=== PATIENT | male | born 1985 | race American Indian/Alaskan Native ===

== ENCOUNTER → 2017-12-23 14:13 | Outpatient (CLI) | payer OTHER, SELFPAY | PROVIDERS: Family Provider Family Medicine; PCP Family Medicine; Visit Provider Ophthalmology | DX: H16.102 Unspecified superficial keratitis, left eye (principal) | CPT/HCPCS: 87070; 87205 ==

== ENCOUNTER → 2018-10-13 10:59 | Outpatient (CLI) | payer OTHER, SELFPAY ==
--- NOTE | 2018-10-13 11:02 | DI.RAD.S_ITS ---
PROCEDURE: XR LUMBAR SPINE 2-3V INDICATIONS: worsening chronic back pain TECHNIQUE: 3 views of the lumbar spine were acquired. COMPARISON: [facility], , L-SPINE 2-3 VIEWS, 12/20/2014, 18:56. FINDINGS: Bones: 5 [id number] vertebrae are present. There is normal bony alignment, and there is only a minimal degree of degenerative disc disease is seen at L1-2 and L5-S1. Facet osteoarthritis is present mild in severity at L5 S1.. No vertebral body compression fractures. No suspicious bony lesions. Soft tissues: Overlying bowel gas pattern is normal. No suspicious soft tissue calcifications. IMPRESSION: Lumbosacral junction degenerative disc disease and facet osteoarthritis is mild to moderate in overall severity but without associated subluxation. No compression fracture found. Dictated by: Rigo Mauro M.D. on 10/13/2018 at 12:46 Approved by: Rigo Mauro M.D. on 10/13/2018 at 12:47
[2018-10-13 12:21] LABS: Add Manual Diff / Slide Review NO; Basophils Absolute Auto 0 /uL (0-100); Basophils Percent Auto 0.5 % (0-2); Eosinophils Absolute Auto 0 /uL (0-450); Eosinophils Percent Auto 0.5 % (2-4); Hematocrit 42.4 % (41-53); Hemoglobin 15.2 g/dL (13.5-17.5); Lymphocytes Absolute Auto 1300 /uL (1100-4500); Lymphocytes Percent Auto 23.5 % (25-40); Mean Corpuscular HGB Conc 35.8 % (30-36); Mean Corpuscular Volume 86.6 fL (80-100); Monocytes Absolute Auto 400 /uL (0-900); Neutrophils Absolute Auto 3700 /uL (1500-7000); Neutrophils Percent Auto 68.5 % (50-75); Platelet Count 229 X10^3/uL (150-400); Red Cell Distribution Width 12.7 % (11.6-14.8); White Blood Cell Count 5.4 X10^3/uL (4.5-11.0)
[2018-10-13 13:18] LABS: Alanine Aminotransferase 69 IU/L (21-72); Albumin 4.8 g/dL (3.5-5.0); Albumin Globulin Ratio 1.5 (1.0-2.8); Alkaline Phosphatase 66 U/L (38-126); Aspartate Aminotransferase 44 IU/L (17-59); Bilirubin Total 0.8 mg/dL (0.2-1.3); Blood Urea Nitrogen 16 mg/dL (9-20); Calcium 9.8 mg/dL (8.4-10.2); Carbon Dioxide 27 mmol/L (22-32); Chloride 105 mmol/L (98-107); Cholesterol 197 mg/dL (140-199); Estimated Glomerular Filt Rate > 60.0 mL/min (>60); Globulin 3.1 g/dL (1.7-4.1); Glucose 100 mg/dL (70-100); HDL Cholesterol 67 mg/dL (40-60); HEMOLYSIS < 15 (0-50); LDL Cholesterol Calculated 118 mg/dL (<100); Potassium 5.3 mmol/L (3.4-5.1); Sodium 142 mmol/L (137-145); Total Protein 7.9 g/dL (6.3-8.2); Triglycerides 62 mg/dL (35-150)
== END ==
PROVIDERS: PCP Family Medicine; Visit Provider Family Medicine
DX: M51.36 Other intervertebral disc degeneration, lumbar region (principal); M51.37 Other intervertebral disc degeneration, lumbosacral region; M47.816 Spondylosis without myelopathy or radiculopathy, lumbar region; M47.817 Spondylosis without myelopathy or radiculopathy, lumbosacral region; Z83.3 Family history of diabetes mellitus; M54.9 Dorsalgia, unspecified; G89.29 Other chronic pain
CPT/HCPCS: 36415; 72100; 80053; 80061; 85025

== ENCOUNTER 2018-11-16 13:08 | Inpatient (IN) | payer OTHER, SELFPAY ==
[2018-11-16] VITALS (12 sets, daily range): BP systolic 123–139; BP diastolic 64–83; PULSE 94–128; RESP 12–22; TEMP 36.8–37.4; O2SAT 98–100; BMI 28.1
[2018-11-16] MEDS: HYDROMORPHONE 1 MG INJ 0.5 MG IV ×2 (13:28→18:29)
[2018-11-16] MEDS: SODIUM CHLORIDE 0.9% 1,000 ML 1000 ML IV ×2 (13:28→14:17)
[2018-11-16] MEDS: ONDANSETRON 4 MG/2 ML INJ IV ×2 (13:28→17:02)
[2018-11-16] MEDS: PANTOPRAZOLE 40 MG VIAL IV (13:28)
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
[2018-11-16 13:51] LABS: Add Manual Diff / Slide Review NO; Basophils Absolute Auto 0 /uL (0-100); Basophils Percent Auto 0.2 % (0-2); Eosinophils Absolute Auto 0 /uL (0-450); Hematocrit 47.3 % (41-53); Hemoglobin 17.1 g/dL (13.5-17.5); INR 1.1 (0.9-1.3); Lymphocytes Absolute Auto 1800 /uL (1100-4500); Lymphocytes Percent Auto 18.5 % (25-40); Mean Corpuscular HGB Conc 36.1 % (30-36); Mean Corpuscular Hemoglobin 30.5 PG (26-34); Mean Corpuscular Volume 84.5 fL (80-100); Monocytes Absolute Auto 600 /uL (0-900); Monocytes Percent Auto 5.6 % (3-14); Neutrophils Absolute Auto 7500 /uL (1500-7000); Neutrophils Percent Auto 75.7 % (50-75); Platelet Count 306 X10^3/uL (150-400); Prothrombin Time 12.4 SECONDS (10.1-12.7); Red Blood Cell Count 5.59 X10^6/uL (4.5-5.9)
[2018-11-16 13:54] LABS: PTT Partial Thromboplastin Tim 29 SECONDS (26.4-36.2)
[2018-11-16 13:55] LABS: Creatine Kinase 1105 U/L (55-170); Lipase 94 U/L (23-300)
[2018-11-16 13:56] LABS: Alanine Aminotransferase 72 IU/L (21-72); Albumin Globulin Ratio 1.4 (1.0-2.8); Alkaline Phosphatase 115 U/L (38-126); Aspartate Aminotransferase 78 IU/L (17-59); BUN Creatinine Ratio 8.6 (6-22); Bilirubin Total 0.9 mg/dL (0.2-1.3); Blood Urea Nitrogen 6 mg/dL (9-20); Carbon Dioxide 25 mmol/L (22-32); Chloride 103 mmol/L (98-107); Estimated Glomerular Filt Rate > 60.0 mL/min (>60); Globulin 3.6 g/dL (1.7-4.1); Glucose 140 mg/dL (70-100); HEMOLYSIS < 15 (0-50); Potassium 3.7 mmol/L (3.4-5.1); Sodium 145 mmol/L (137-145); Total Protein 8.6 g/dL (6.3-8.2)
--- NOTE | 2018-11-16 14:05 | PC.NURSE ---
1316 on arrival pt awake, crying with tears, guarding abdomin, +pain, +heaving. skin pink,warm dry. refusing care, refusing cardiac specialist, refusing iv start.\ \with reassurance, pt agreed for care.
--- NOTE | 2018-11-16 14:07 | PC.NURSE ---
Family member of the pt called the ER requesting information about the pt. I asked the pt if it was ok that we give out any information and he said he didnt want us to. I informed the family member that I could not give out any information due to HIPAA and the pts rights.
[2018-11-16 14:08] LABS: Troponin I < 0.012 ng/mL (0.01-0.034)
[2018-11-16 14:10] LABS: CKMB % Relative Index 0.2 % (1.5-5.0); Creatine Kinase MB 2.14 ng/mL (<2.37)
[2018-11-16 14:11] LABS: Lactate (Lactic Acid) 4.9 mmol/L (0.7-2.1)
--- NOTE | 2018-11-16 14:13 | DI.CT.S_ITS ---
PROCEDURE: CT HEAD/BRAIN WO CON INDICATIONS: vomiting, hx of subdural TECHNIQUE: Noncontrast 4.5 mm thick angled axial sections acquired from the foramen magnum to the vertex, with coronal and sagittal reformats. For radiation dose reduction, the following was used: automated exposure control, adjustment of mA and/or kV according to patient size. COMPARISON: None. FINDINGS: Image quality: Excellent. CSF spaces: Basal cisterns are patent. No extra-axial fluid collections. Ventricles are normal in size and shape. Brain: No midline shift. No intracranial masses or hemorrhage. Hannah-white matter interface is normal. Skull and face: Calvarium and visualized facial bones are intact, without acute suspicious lesions. Prior left temporoparietal craniotomy reportedly for subdural hematoma evacuation. Sinuses: Visualized sinuses and mastoids are clear. Note is made that the nasal bones and the midline nasal septum have a curvature directed rightward, but no acute trauma in this area is found. IMPRESSION: No acute disease found, no sign of subdural hematoma or hydrocephalus. Right temporoparietal craniotomy without evidence of operative complication. Dictated by: Rigo Mauro M.D. on 11/16/2018 at 14:12 Approved by: Rigo Mauro M.D. on 11/16/2018 at 14:14
--- NOTE | 2018-11-16 14:13 | DI.CT.S_ITS ---
PROCEDURE: CT ABDOMEN PELVIS W CON INDICATIONS: pain vomiting blood TECHNIQUE: After the administration of oral and intravenous contrast, 5 mm thick sections acquired from the diaphragms to the symphysis. 5 mm thick coronal and sagittal reformats were performed. For radiation dose reduction, the following was used: automated exposure control, adjustment of mA and/or kV according to patient size. COMPARISON: None. FINDINGS: Image quality: Excellent. ABDOMEN: Lung bases: Lung bases are clear. Heart size is normal. Solid organs: Liver is normal in size and enhancement. Gallbladder appears normal. Biliary system is non-dilated. Pancreas enhances normally. Spleen is normal in size and enhancement. No adrenal nodules. Kidneys are normal in size and enhancement, without hydronephrosis. Peritoneum and bowel: Stomach, small bowel, and colon loops are normal in caliber and wall thickness. No free fluid or air. Nodes and vessels: No retroperitoneal or mesenteric adenopathy. Aorta and inferior vena cava are normal in caliber. Miscellaneous: No ventral hernias. PELVIS: Genitourinary: Bladder wall thickness is normal. Miscellaneous: No inguinal hernias or adenopathy. Normal appendix foun right lower quadrant Bones: No suspicious bony lesions. No vertebral body compression fractures. IMPRESSION: No underlying infection is suspected, no intestinal obstruction or perforation is seen. Normal appendix foun. Dictated by: Rigo Mauro M.D. on 11/16/2018 at 14:14 Approved by: Rigo Mauro M.D. on 11/16/2018 at 14:15
--- NOTE | 2018-11-16 14:52 | PC.NURSE ---
EMS reports known ETOH, TBI, vomiting blood.
[2018-11-16 14:59] LABS: Ethanol (ETOH) 336 mg/dL
[2018-11-16] MEDS: PANTOPRAZOLE 80 MG in SODIUM CHLORIDE 0.9% 100 ML 10 ML IV (15:12)
[2018-11-16 15:21] LABS: Urine Amphetamines Negative (Negative); Urine Barbiturates Negative (Negative); Urine Benzodiazepines Negative (Negative); Urine Cocaine Negative (Negative); Urine MDMA Negative (Negative); Urine Methadone Negative (Negative); Urine Methamphetamines Negative (Negative); Urine Morphine/Opi cutoff 2000 Negative (Negative); Urine Oxycodone Negative (Negative); Urine Phencyclidine Negative (Negative); Urine Tetrahydrocannabinol Negative (Negative); Urine Tricyclic Antidepressant Negative (Negative)
[2018-11-16 15:38] LABS: Reflexed Lactate in 2 Hours Y
--- NOTE | 2018-11-16 15:41 | PC.NURSE ---
1500 pt stating that he had to urinate. When told that he needed to use a urinal instead of walking to the bathroom he stated that he was just trying to go home. I said that I understood but that he should go ahead and use the restroom. Pt seemed uncomfortable with me staying in the room while he voided. I told him that I would have a male nurse (Ricki) come assist him. Pt was agreeable to this.
[2018-11-16] MEDS: HYDROMORPHONE 1 MG INJ IV (15:57)
[2018-11-16] MEDS: SODIUM CHLORIDE 0.9% 1,000 ML 250 ML IV (16:39)
[2018-11-16] MEDS: LORazepam 2 MG/ML INJ 1 MG IV (17:02)
--- NOTE | 2018-11-16 17:08 | RT ---
EKG done at 1334. Documentation on worklist would not let me enter a time. EKG was givwn to MD Gongora.
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
[2018-11-16 17:39] LABS: Lactate 2HR (Lactic Acid Rflx) 3.7 mmol/L (0.7-2.1)
[2018-11-16] MEDS: HYDROMORPHONE 1 MG INJ 2 MG IV ×2 (19:04→22:33)
[2018-11-16] MEDS: KCL 20 MEQ IN NS 1,000 ML 200 MEQ IV (19:17)
--- NOTE | 2018-11-16 20:26 | PC.NURSE ---
Patient arrived to floor via stretcher from ED. Patient is A&O x4, does have some difficulty finding words and is slightly mumbled. Patient has a strong odor of alcohol present while standing at bedside. Patient reports to this nurse he has not had any alcohol since june of 2011 but due to some home issues with his current partner he started drinking Henessy yesterday and is unclear on the actual amount consumed. Patient has sever viable tremors upon arrival, proximal sweating, reports feeling very anxious but believes it to be due to the Dilaudid medication given from his abd. Pain. Patient states he is feel nauseated and wishes to have some water so he can throw up. Offered treatment for nausea but patient declined. Pain in abd. is rated a 8/10. Patient also states the he is feeling emotional pain due to his current relationship issues. Patient was asked upon arrival to the floor how he wishes to remain while at . Explained to patient that his current admission status is confidential and asked if he wishes to remain. Patient reports he does not want ANYONE to know he is in the hospital. I explained to patient that if anyone calls this means we will state we do not have anyone under said/asked name, Patient is agreeable to plan to remain confidential. Patient wishes to have curtains drawn at all times as well. CIWA screen was done on patient given his presenting sxs and scored an 8. Patient is resting peacefully in bed at this time, call light w/in reach, bed in low pos.
[2018-11-16] MEDS: LORazepam 1 MG TABLET PO (22:47)
[2018-11-17] VITALS (9 sets, daily range): BP systolic 128–144; BP diastolic 68–92; PULSE 75–110; RESP 15–21; TEMP 36.8–37.5; O2SAT 95–100
[2018-11-17] MEDS: KCL 20 MEQ IN NS 1,000 ML 200 MEQ IV ×5 (01:07→21:20)
[2018-11-17] MEDS: LORazepam 2 MG/ML INJ IV ×6 (01:11→21:21)
[2018-11-17] MEDS: ONDANSETRON 4 MG/2 ML INJ IV ×2 (01:12→17:53)
[2018-11-17] MEDS: PANTOPRAZOLE 80 MG in SODIUM CHLORIDE 0.9% 100 ML 10 ML IV ×2 (01:40→12:46)
[2018-11-17] MEDS: HYDROMORPHONE 1 MG INJ IV ×2 (03:54→06:28)
[2018-11-17 05:16] LABS: Add Manual Diff / Slide Review NO; Basophils Absolute Auto 0 /uL (0-100); Basophils Percent Auto 0.2 % (0-2); Eosinophils Absolute Auto 0 /uL (0-450); Hematocrit 40.4 % (41-53); Hemoglobin 13.9 g/dL (13.5-17.5); Lymphocytes Absolute Auto 1400 /uL (1100-4500); Lymphocytes Percent Auto 11.6 % (25-40); Mean Corpuscular HGB Conc 34.5 % (30-36); Mean Corpuscular Hemoglobin 30.1 PG (26-34); Mean Corpuscular Volume 87.4 fL (80-100); Monocytes Absolute Auto 700 /uL (0-900); Monocytes Percent Auto 6.4 % (3-14); Neutrophils Absolute Auto 9600 /uL (1500-7000); Neutrophils Percent Auto 81.8 % (50-75); Platelet Count 214 X10^3/uL (150-400); Red Blood Cell Count 4.63 X10^6/uL (4.5-5.9); Red Cell Distribution Width 12.7 % (11.6-14.8); White Blood Cell Count 11.7 X10^3/uL (4.5-11.0)
[2018-11-17 05:26] LABS: BUN Creatinine Ratio 16.7 (6-22); Blood Urea Nitrogen 10 mg/dL (9-20); Calcium 7.9 mg/dL (8.4-10.2); Carbon Dioxide 27 mmol/L (22-32); Chloride 106 mmol/L (98-107); Creatine Kinase 826 U/L (55-170); Estimated Glomerular Filt Rate > 60.0 mL/min (>60); Glucose 118 mg/dL (70-100); HEMOLYSIS < 15 (0-50); Lactate (Lactic Acid) 1.3 mmol/L (0.7-2.1); Sodium 139 mmol/L (137-145)
[2018-11-17] MEDS: LORazepam 2 MG/ML INJ 1 MG IV (06:27)
[2018-11-17] MEDS: SODIUM CHLORIDE 0.9% FLUSH 10 ML IV ×4 (06:29→21:33)
--- NOTE | 2018-11-17 06:34 | PC.NURSE ---
Pt c/o break through pain. Provider notified of cont pain level, cont n/v, increased ciwa, elevated temp of 99.1. MD would like pt to have 1 mg ativan now and 1 mg Dilaudid once for break-through pain. Medicated per jun. CPOX placed on to monitor sats. Pt now resting in bed. Bed alarm on. Call light within reach.
--- NOTE | 2018-11-17 07:44 | P.PN_ITS ---
Subjective Date Patient Seen: 11/17/18 Time Patient Seen: 07:22 Interval history: Patient had a difficult night with back pain, anxiety and nausea. Received lorazepam and hydromorphone multiple times. He had clear emesis. No reports of blood in emesis. No bowel movements. He states he is very anxious. This morning he complains of low back pain that feels different than his chronic back pain and pain with urination. He states that he actually drank for 3-4 days prior to being found down by housekeeping in his hotel. He is adamant that he had not been drinking prior to that since 2011. Exam Vital Signs (past 8 hours): - 11/17/18 01:00 11/17/18 01:23 11/17/18 06:10 Temperature 98.7 F 99.1 F Pulse Rate 76 75 Respiratory Rate 21 16 Blood Pressure 133/68 134/73 Pulse Oximetry 99 99 95 Oxygen Delivery Method Room Air Oxygen Flow Rate 0 Narrative Exam Narrative: General: Resting in bed with eyes closed. Wakes briefly to some questions but is slow to answer and does not answer all questions. Appears to go in and out of sleep. HEENT: NCAT, moist oral mucosa CV: Regular rate and rhythm, no murmurs, rubs or gallops Lungs: CTAB, no wheezes, rales, or rhonchi Abdomen: Soft, nontender; bowel tones active; no hepatosplenomegaly Extremities: Warm, no edema, 2+ pedal pulses bilaterally Objective Labs Result Diagrams: 11/17/18 05:01 11/17/18 05:01 Labs: Laboratory Results - last 24 hr 11/16/18 11/16/18 11/16/18 13:20 13:20 13:20 WBC 10.0 RBC 5.59 Hgb 17.1 Hct 47.3 MCV 84.5 MCH 30.5 MCHC 36.1 H RDW 13.0 Plt Count 306 Neut % (Auto) 75.7 H Lymph % (Auto) 18.5 L [place] % (Auto) 5.6 Eos % (Auto) 0.0 L Baso % (Auto) 0.2 Neut # (Auto) 7500 H Lymph # (Auto) 1800 [place] # (Auto) 600 Eos # (Auto) 0 Baso # (Auto) 0 PT INR APTT Sodium Potassium Chloride Carbon Dioxide BUN Creatinine Estimated GFR BUN/Creatinine Ratio Glucose Lactate 4.9 H* Calcium Total Bilirubin AST ALT Alkaline Phosphatase Total Creatine Kinase 1105 H CK-MB (CK-2) 2.14 CK-MB (CK-2) Rel Index 0.2 L Troponin I < 0.012 Total Protein Albumin Globulin Albumin/Globulin Ratio Lipase 94 Urine Opiates Screen Ur Oxycodone Screen Urine Methadone Screen Ur Barbiturates Screen U Tricyclic Antidepress Ur Phencyclidine Scrn Ur Amphetamines Screen U Methamphetamines Scrn Ur MDMA Scrn (Ecstasy) U Benzodiazepines Scrn Urine Cocaine Screen U Marijuana (THC) Screen Ethyl Alcohol Blood Type Antibody Screen 11/16/18 11/16/18 11/16/18 13:20 13:20 13:20 WBC RBC Hgb Hct MCV MCH MCHC RDW Plt Count Neut % (Auto) Lymph % (Auto) [place] % (Auto) Eos % (Auto) Baso % (Auto) Neut # (Auto) Lymph # (Auto) [place] # (Auto) Eos # (Auto) Baso # (Auto) PT 12.4 INR 1.1 APTT 29 Sodium 145 Potassium 3.7 Chloride 103 Carbon Dioxide 25 BUN 6 L Creatinine 0.70 Estimated GFR > 60.0 BUN/Creatinine Ratio 8.6 Glucose 140 H Lactate Calcium 9.0 Total Bilirubin 0.9 AST 78 H ALT 72 Alkaline Phosphatase 115 Total Creatine Kinase CK-MB (CK-2) CK-MB (CK-2) Rel Index Troponin I Total Protein 8.6 H Albumin 5.0 Globulin 3.6 Albumin/Globulin Ratio 1.4 Lipase Urine Opiates Screen Ur Oxycodone Screen Urine Methadone Screen Ur Barbiturates Screen U Tricyclic Antidepress Ur Phencyclidine Scrn Ur Amphetamines Screen U Methamphetamines Scrn Ur MDMA Scrn (Ecstasy) U Benzodiazepines Scrn Urine Cocaine Screen U Marijuana (THC) Screen Ethyl Alcohol Blood Type O Positive Antibody Screen Negative 11/16/18 11/16/18 11/16/18 13:38 15:11 17:17 WBC RBC Hgb Hct MCV MCH MCHC RDW Plt Count Neut % (Auto) Lymph % (Auto) [place] % (Auto) Eos % (Auto) Baso % (Auto) Neut # (Auto) Lymph # (Auto) [place] # (Auto) Eos # (Auto) Baso # (Auto) PT INR APTT Sodium Potassium Chloride Carbon Dioxide BUN Creatinine Estimated GFR BUN/Creatinine Ratio Glucose Lactate 3.7 H Calcium Total Bilirubin AST ALT Alkaline Phosphatase Total Creatine Kinase CK-MB (CK-2) CK-MB (CK-2) Rel Index Troponin I Total Protein Albumin Globulin Albumin/Globulin Ratio Lipase Urine Opiates Screen Negative Ur Oxycodone Screen Negative Urine Methadone Screen Negative Ur Barbiturates Screen Negative U Tricyclic Antidepress Negative Ur Phencyclidine Scrn Negative Ur Amphetamines Screen Negative U Methamphetamines Scrn Negative Ur MDMA Scrn (Ecstasy) Negative U Benzodiazepines Scrn Negative Urine Cocaine Screen Negative U Marijuana (THC) Screen Negative Ethyl Alcohol 336 Blood Type Antibody Screen 11/17/18 11/17/18 11/17/18 05:01 05:01 05:01 WBC 11.7 H RBC 4.63 Hgb 13.9 Hct 40.4 L MCV 87.4 MCH 30.1 MCHC 34.5 RDW 12.7 Plt Count 214 Neut % (Auto) 81.8 H Lymph % (Auto) 11.6 L [place] % (Auto) 6.4 Eos % (Auto) 0.0 L Baso % (Auto) 0.2 Neut # (Auto) 9600 H Lymph # (Auto) 1400 [place] # (Auto) 700 Eos # (Auto) 0 Baso # (Auto) 0 PT INR APTT Sodium 139 Potassium 4.0 Chloride 106 Carbon Dioxide 27 BUN 10 Creatinine 0.60 L Estimated GFR > 60.0 BUN/Creatinine Ratio 16.7 Glucose 118 H Lactate 1.3 Calcium 7.9 L Total Bilirubin AST ALT Alkaline Phosphatase Total Creatine Kinase 826 H CK-MB (CK-2) CK-MB (CK-2) Rel Index Troponin I Total Protein Albumin Globulin Albumin/Globulin Ratio Lipase Urine Opiates Screen Ur Oxycodone Screen Urine Methadone Screen Ur Barbiturates Screen U Tricyclic Antidepress Ur Phencyclidine Scrn Ur Amphetamines Screen U Methamphetamines Scrn Ur MDMA Scrn (Ecstasy) U Benzodiazepines Scrn Urine Cocaine Screen U Marijuana (THC) Screen Ethyl Alcohol Blood Type Antibody Screen Assessment & Plan (1) Acute alcohol intoxication: Current visit: Yes Status: Acute (2) Acute GI bleeding: Current visit: Yes Status: Acute (3) Chronic back pain: Current visit: No Status: Chronic (4) Anxiety: Current visit: Yes Status: Acute Assessment & Plan narrative: Patient was admitted overnight for acute alcohol intoxication, acute dehydration and concern for upper GI bleed. He has not had any witnessed hematemesis since arrival to the hospital. Emesis reportedly clear overnight. Dehydration significantly improved with normalization of tachycardia and improved urine output. He was placed on the CIWA protocol last night however he was still intoxicated at the time so too soon to experience alcohol withdrawal. I believe the symptoms overnight are most consistent with alcohol intoxication and dehydration rather than withdrawal. He was quite sleepy this morning after lorazepam and hydrocodone so difficult to assess. He does complain of low back pain which is not a new issue though he does complain of some pain with urination. Plan for this morning is to recheck labs, continue IV fluid support, check UA due to dysuria, limit hydromorphone and lorazepam and reassess midday once he is hopefully more awake. Will need mental health support upon discharge, likely will set him up with the [facility]. He already as a referral for his chronic low back pain. Quality VTE Deep Vein Thrombosis/Pulmonary Embolism Present on Admission: No
[2018-11-17 09:26] LABS: Hematocrit 41.5 % (41-53); Hemoglobin 14.7 g/dL (13.5-17.5); Mean Corpuscular HGB Conc 35.3 % (30-36); Mean Corpuscular Hemoglobin 30.7 PG (26-34); Mean Corpuscular Volume 86.9 fL (80-100); Platelet Count 205 X10^3/uL (150-400); Red Blood Cell Count 4.78 X10^6/uL (4.5-5.9); Red Cell Distribution Width 12.6 % (11.6-14.8)
[2018-11-17 09:43] LABS: Magnesium 1.8 mg/dL (1.6-2.3)
[2018-11-17 09:45] LABS: Creatine Kinase 764 U/L (55-170); Ethanol (ETOH) < 10 mg/dL
[2018-11-17 10:10] LABS: Appearance Urine UA CLEAR; Bilirubin Urine UA NEGATIVE (NEGATIVE); Color Urine UA YELLOW; Glucose Urine UA NEGATIVE (Negative); Ketones Urine UA TRACE (NEGATIVE); Leukocyte Esterase Urine UA NEGATIVE (NEGATIVE); Nitrite Urine UA NEGATIVE (Negative); Occult Blood Urine UA NEGATIVE (Negative); Protein Urine UA NEGATIVE (Negative); Urobilinogen Urine UA 0.2 E.U./dL (0.2)
[2018-11-17 10:28] LABS: RBC Urine 0-1/HPF (0-5/HPF); WBC Urine 0-1/HPF (0-5/HPF)
[2018-11-17 10:29] LABS: Bacteria Urine Few (2-10); Culture Indicated Urine Cult Not Indicated; Squamous Epithelial Cell Urine 0-1 /HPF (0-5/HPF)
--- NOTE | 2018-11-17 11:47 | PC.NURSE ---
CIWA score of 13. Pt has headache, states he is anxious, seeing hallucinations of additional people in the room when it is only one nurse present. Pt states he hears some odd noises- unable to give details. Will continue to treat per CIWA protocol
[2018-11-17] MEDS: FOLIC ACID 1 MG TABLET PO (14:33)
[2018-11-17] MEDS: MULTIVITAMIN 1 TABLET 1 TAB PO (14:33)
[2018-11-17] MEDS: THIAMINE 100 MG TABLET PO (14:34)
--- NOTE | 2018-11-17 17:07 | PM.PN.1 ---
Exam Vital Signs (past 8 hours): - 11/17/18 09:30 11/17/18 11:15 11/17/18 12:00 Temperature 99.5 F 99.4 F 99.4 F Pulse Rate 110 H 102 H 102 H Respiratory Rate 20 15 15 Blood Pressure 128/79 130/92 H 130/92 H Pulse Oximetry 100 98 98 11/17/18 16:32 Temperature 98.3 F Pulse Rate 86 Respiratory Rate 18 Blood Pressure 144/71 H Pulse Oximetry 97 Oxygen Delivery Method Room Air Oxygen Flow Rate 0 Objective Labs Result Diagrams: 11/17/18 09:10 11/17/18 05:01 Labs: Laboratory Results - last 24 hr 11/16/18 11/17/18 11/17/18 17:17 05:01 05:01 WBC 11.7 H RBC 4.63 Hgb 13.9 Hct 40.4 L MCV 87.4 MCH 30.1 MCHC 34.5 RDW 12.7 Plt Count 214 Neut % (Auto) 81.8 H Lymph % (Auto) 11.6 L [place] % (Auto) 6.4 Eos % (Auto) 0.0 L Baso % (Auto) 0.2 Neut # (Auto) 9600 H Lymph # (Auto) 1400 [place] # (Auto) 700 Eos # (Auto) 0 Baso # (Auto) 0 Sodium 139 Potassium 4.0 Chloride 106 Carbon Dioxide 27 BUN 10 Creatinine 0.60 L Estimated GFR > 60.0 BUN/Creatinine Ratio 16.7 Glucose 118 H Lactate 3.7 H Calcium 7.9 L Magnesium Total Creatine Kinase 826 H Urine Color Urine Appearance Urine pH Ur Specific [place] Urine Protein Urine Glucose (UA) Urine Ketones Urine Occult Blood Urine Nitrate Urine Bilirubin Urine Urobilinogen Ur Leukocyte Esterase Urine RBC Urine WBC Ur Squamous Epith Cells Urine Bacteria Ur Culture Indicated? Ethyl Alcohol 11/17/18 11/17/18 11/17/18 05:01 09:10 09:10 WBC 10.0 RBC 4.78 Hgb 14.7 Hct 41.5 MCV 86.9 MCH 30.7 MCHC 35.3 RDW 12.6 Plt Count 205 Neut % (Auto) Lymph % (Auto) [place] % (Auto) Eos % (Auto) Baso % (Auto) Neut # (Auto) Lymph # (Auto) [place] # (Auto) Eos # (Auto) Baso # (Auto) Sodium Potassium Chloride Carbon Dioxide BUN Creatinine Estimated GFR BUN/Creatinine Ratio Glucose Lactate 1.3 Calcium Magnesium Total Creatine Kinase 764 H Urine Color Urine Appearance Urine pH Ur Specific [place] Urine Protein Urine Glucose (UA) Urine Ketones Urine Occult Blood Urine Nitrate Urine Bilirubin Urine Urobilinogen Ur Leukocyte Esterase Urine RBC Urine WBC Ur Squamous Epith Cells Urine Bacteria Ur Culture Indicated? Ethyl Alcohol 11/17/18 11/17/18 11/17/18 09:10 09:10 09:57 WBC RBC Hgb Hct MCV MCH MCHC RDW Plt Count Neut % (Auto) Lymph % (Auto) [place] % (Auto) Eos % (Auto) Baso % (Auto) Neut # (Auto) Lymph # (Auto) [place] # (Auto) Eos # (Auto) Baso # (Auto) Sodium Potassium Chloride Carbon Dioxide BUN Creatinine Estimated GFR BUN/Creatinine Ratio Glucose Lactate Calcium Magnesium 1.8 Total Creatine Kinase Urine Color Yellow Urine Appearance Clear Urine pH 7.0 Ur Specific [place] 1.020 Urine Protein Negative Urine Glucose (UA) Negative Urine Ketones Trace H Urine Occult Blood Negative Urine Nitrate Negative Urine Bilirubin Negative Urine Urobilinogen 0.2 Ur Leukocyte Esterase Negative Urine RBC 0-1/hpf Urine WBC 0-1/hpf Ur Squamous Epith Cells 0-1 /hpf Urine Bacteria Few (2-10) H Ur Culture Indicated? Cult not indicated Ethyl Alcohol < 10 Assessment & Plan Assessment & Plan narrative: Patient still with nausea, dry heaves and elevated CIWA scores. Alcohol seems unlikely since he supposedly has not been drinking until this week but clinical picture is most consistent with withdrawal. Will continue CIWA monitoring and lorazepam. Stop Protonix drip and start oral Protonix. No evidence of GI bleed. Stop hydromorphone, ok to have oxycodone for pain, no NSAIDs due to concern of GI bleed on admission. I suspect he needs more time to recover from alcohol intoxication/poisoning. Anticipate at least another night in the hospital. Quality VTE Deep Vein Thrombosis/Pulmonary Embolism Present on Admission: No
[2018-11-17] MEDS: OXYCODONE IR 5 MG TABLET PO (17:52)
--- NOTE | 2018-11-17 23:26 | PC.NURSE ---
pt c/o of back pain and abdominal pain, gave zofran for dry heaves and oxycodone 5mg. pt fell asleep and woke up around 2119, pt reports his hallucinations increased. pt seeing people in the room and hearing voices. pt states the voices are telling him bad things. pt also saw spiders. pt's head ache improved. CIWA 17, gave 2mg ativan.
[2018-11-18] VITALS (7 sets, daily range): BP systolic 117–142; BP diastolic 70–85; PULSE 69–98; RESP 16–18; TEMP 36.4–37.6; O2SAT 97–99
[2018-11-18] MEDS: ONDANSETRON 4 MG/2 ML INJ IV ×3 (00:45→14:22)
[2018-11-18] MEDS: OXYCODONE IR 5 MG TABLET PO ×5 (00:45→23:00)
[2018-11-18] MEDS: LORazepam 1 MG TABLET PO (00:45)
[2018-11-18] MEDS: KCL 20 MEQ IN NS 1,000 ML 200 MEQ IV ×3 (02:26→14:23)
[2018-11-18 05:22] LABS: Hematocrit 38.5 % (41-53); Hemoglobin 13.5 g/dL (13.5-17.5); Mean Corpuscular HGB Conc 35.1 % (30-36); Mean Corpuscular Hemoglobin 30.4 PG (26-34); Mean Corpuscular Volume 86.6 fL (80-100); Platelet Count 182 X10^3/uL (150-400); Red Blood Cell Count 4.44 X10^6/uL (4.5-5.9); Red Cell Distribution Width 12.5 % (11.6-14.8); White Blood Cell Count 5.9 X10^3/uL (4.5-11.0)
[2018-11-18 05:40] LABS: Alanine Aminotransferase 46 IU/L (21-72); Albumin 3.5 g/dL (3.5-5.0); Albumin Globulin Ratio 1.3 (1.0-2.8); Alkaline Phosphatase 75 U/L (38-126); Aspartate Aminotransferase 49 IU/L (17-59); Bilirubin Total 1.1 mg/dL (0.2-1.3); Blood Urea Nitrogen 6 mg/dL (9-20); Calcium 8.3 mg/dL (8.4-10.2); Carbon Dioxide 26 mmol/L (22-32); Chloride 107 mmol/L (98-107); Estimated Glomerular Filt Rate > 60.0 mL/min (>60); Globulin 2.7 g/dL (1.7-4.1); Glucose 97 mg/dL (70-100); HEMOLYSIS < 15 (0-50); Potassium 4.1 mmol/L (3.4-5.1); Sodium 139 mmol/L (137-145); Total Protein 6.2 g/dL (6.3-8.2)
[2018-11-18 06:05] LABS: Creatine Kinase 457 U/L (55-170)
[2018-11-18] MEDS: PANTOPRAZOLE 40 MG TABLET PO (06:52)
[2018-11-18] MEDS: LORazepam 2 MG/ML INJ IV ×3 (10:25→18:59)
[2018-11-18] MEDS: SODIUM CHLORIDE 0.9% FLUSH 10 ML IV ×4 (10:26→21:38)
--- NOTE | 2018-11-18 10:53 | DI.MRI.S_ITS ---
PROCEDURE: MR HEAD/BRAIN WO CON INDICATIONS: mental status change TECHNIQUE: Noncontrast axial T1 spin echo, axial T2 fast spin echo, sagittal and axial FLAIR, coronal T2 fast spin echo, axial gradient echo, axial diffusion and ADC through the brain. COMPARISON: [facility], CT, CT HEAD/BRAIN WO CON, 11/16/2018, 13:44. FINDINGS: Image quality: The standard head coil could not be used the, secondary to patient vomiting. CSF Spaces: Basal cisterns are patent. No extra-axial fluid collections. Ventricles are normal in size and shape. Brain: No intracranial masses or hemorrhage. [place]/white matter interface is normal. Brainstem appears normal. Diffusion-weighted images demonstrate no acute ischemic insult. No chronic ischemic insults. Normal intravascular flow voids are present. Skull and face: Right sided craniotomy changes are seen. Calvarium has normal marrow signal. Orbits appear normal. Sinuses: Sinuses and mastoids are clear. IMPRESSION: Limited study demonstrating no acute intracranial abnormality. Right-sided craniotomy changes. Dictated by: Louis Blackmon M.D. on 11/18/2018 at 10:57 Approved by: Louis Blackmon M.D. on 11/18/2018 at 10:58
--- NOTE | 2018-11-18 11:00 | P.PN_ITS ---
Subjective Date Patient Seen: 11/18/18 Time Patient Seen: 10:56 Interval history: Alcohol intoxication. This morning patient really does not feel any better. He has several complaints. Continues to feel nauseated and retch. He is not vomiting anything because not taking anything orally. He has a significant amount of nausea persisted. Additionally he is having some reflux type of symptoms that has persisted. His abdominal pain is midepigastric and seemed to be unchanged from yesterday not getting better not getting worse. He also has mid thoracic back pain that is not atypical for him. Reportedly he was having hallucinations at a CIWA score still 17 so he is getting fair amount medication for this. Exam Vital Signs (past 8 hours): - 11/18/18 04:00 11/18/18 04:40 Temperature 98.3 F Pulse Rate 98 H Respiratory Rate 18 Blood Pressure 131/77 Pulse Oximetry 98 99 Oxygen Delivery Method Room Air Oxygen Flow Rate 0 Narrative Exam Narrative: Patient is examined in his hospital bed he looks uncomfortable and rashes while I am examining him. Complaining of generalized pain. His neuro exam seems to be a normal. Lungs are clear. Heart regular rhythm no murmur gallop. He does have from abdominal tenderness and some guarding there is no masses no rebound. Back exam just generalized discomfort in the lower thoracic area upper lumbar Objective Labs Result Diagrams: 11/18/18 04:52 11/18/18 04:52 Labs: Laboratory Results - last 24 hr 11/18/18 11/18/18 11/18/18 04:52 04:52 04:52 WBC 5.9 RBC 4.44 L Hgb 13.5 Hct 38.5 L MCV 86.6 MCH 30.4 MCHC 35.1 RDW 12.5 Plt Count 182 Sodium 139 Potassium 4.1 Chloride 107 Carbon Dioxide 26 BUN 6 L Creatinine 0.60 L Estimated GFR > 60.0 BUN/Creatinine Ratio 10.0 Glucose 97 Calcium 8.3 L Total Bilirubin 1.1 AST 49 ALT 46 Alkaline Phosphatase 75 Total Creatine Kinase 457 H D Total Protein 6.2 L Albumin 3.5 Globulin 2.7 Albumin/Globulin Ratio 1.3 Labs from today is reviewed his total is CK has decreased but still elevated. Renal functions normal however. Hemoglobin stable drop somewhat with hydration Assessment & Plan Assessment & Plan narrative: 1. Alcohol intoxication presumably the acute intoxication has resolved his alcohol level was back down to normal. Unclear to me how much of this is related to his alcohol or to his alcohol withdrawal. This seems to be fairly prolonged course. Perhaps other things involved. 2. Persistent nausea and vomiting and retching. Persistent abdominal pain. Rediscussed with Dr. Magana the surgeon public relations account supervisor who will see patient in consultation. May need endoscopy. 3. His mental status today seems appropriate but a report he has been having hallucinations. This is been treated accordingly to the [facility] protocol. This seems to be unusual and will get MRI of the head he did denies having any metal clips from his brain injury I suspect not however yet to be determined. 4. Chronic back pain seems to be ongoing problem. Will switch over 2 hydromorphone because patient does vomiting cannot tolerate the pills. Quality VTE Deep Vein Thrombosis/Pulmonary Embolism Present on Admission: No
[2018-11-18 12:45] LABS: Amylase 63 U/L (30-110); Lipase 208 U/L (23-300)
[2018-11-18] MEDS: HYDROMORPHONE 0.5 MG INJ 1 MG IV ×3 (12:51→21:33)
[2018-11-18] MEDS: PANTOPRAZOLE 40 MG VIAL IV (12:52)
--- NOTE | 2018-11-18 12:59 | PM.CN ---
History of Present Illness Date Patient Seen: 11/18/18 Time Patient Seen: 13:44 Chief complaint: Vomiting blood Narrative: The patient is a 33-year-old male who is admitted to the hospital for 3 days with abdominal pain. He was initially found down and there was some question of GI bleed but he has had no hematemesis and no hematochezia since his admission and his hematocrit is 39 today and 47 on admission. His complaint is of some sharp mid epigastrium abdominal pain that goes to the back and is worsened by eating. He is in active alcohol withdrawl currently and recieving treatment. He has a history of chronic back pain and endorses heavy usage of NSAIDs. He has been receiving Protonix during his hospital stay. He denies history of ulcer disease. On admission he underwent a CT of his abdomen pelvis that was unremarkable including pancreas which I reviewed personally. There is no free air or fluid around stomach or the duodenum to suggest perforation. His laboratory studies on admission were remarkable for dehydration and have subsequently normalized with fluid resuscitation. 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) Anxiety (Resolved) Sternum fx (Resolved) Surgical History Anesthesia (Resolved) History of brain surgery (Resolved) Family History Father Cancer Diabetes mellitus History of heart disease Hypertension Hyperlipidemia Stroke Grandfather Cancer Diabetes mellitus History of heart disease Hypertension Stroke Grandmother Diabetes mellitus History of heart disease Hypertension Social History marital status: unmarried,single number of children: 2 household members: family lives independently: Yes occupational status: employed Smoking Status: Never smoker alcohol intake: former substance use type: does not use Family History Father Cancer Diabetes mellitus History of heart disease Hypertension Hyperlipidemia Stroke Grandfather Cancer Diabetes mellitus History of heart disease Hypertension Stroke Grandmother Diabetes mellitus History of heart disease Hypertension Social History marital status: unmarried,single number of children: 2 household members: family lives independently: Yes occupational status: employed Smoking Status: Never smoker alcohol intake: former substance use type: does not use Meds Home Medications Medication Instructions Recorded Confirmed Type buspirone 7.5 mg tablet 7.5 mg PO DAILY PRN tab 10/09/18 11/16/18 History meloxicam 15 mg tablet 15 mg PO DAILY #30 tab 10/24/18 11/16/18 Rx hydrocodone-acetaminophen 1 tab PO Q6-8H PRN 11/16/18 11/17/18 History Allergies Allergy/AdvReac Type Severity Reaction Status Date / Time No Known Drug Allergies Allergy Verified 11/16/18 13:16 Review of Systems Review of Systems General-no weight loss, fever or chills Head and Neck-no change in voice, no neck swelling Pulmonary-No cough, no shortness of breath at rest, no wheezing Cardiac-No syncope, caludiacation, palpitations or lower extremity edema Gastrointestinal- +nausea and vomiting, no abdominal distention, change in bowel habits,or jaundice Genitourinary-No hematuria or dysuria Hematology-No hypercoagulability, no abnormal bleeding or bruising Neurological-No seizures, new weakness or dizziness Endocrine-No diabetes, no thyroid or adrenal disorders Psychiatric-+substance abuse disorder Exam Vital Signs (past 8 hours): Oxygen Delivery Method Room Air Oxygen Flow Rate 0 Narrative Exam Narrative: General-Adult male in pain and restless. HEENT-Moist mucous membranes, no scleral icteris Neck-Supple with full range of motion, no lymphadenopathy Chest- No labored respirations, clear to auscultation bilaterally Cardiac-Regular rate and rhythm Abdomen-Tender midepigastrum, non distended, no peritonitis Extremities-No edema, warm well perfused Neurological-Alert No focal deficits Skin-Normal temperature and turgor, no rashes or ulcers Objective Labs Result Diagrams: 11/18/18 04:52 11/18/18 04:52 Labs: Laboratory Results - last 24 hr 11/18/18 11/18/18 11/18/18 04:52 04:52 04:52 WBC 5.9 RBC 4.44 L Hgb 13.5 Hct 38.5 L MCV 86.6 MCH 30.4 MCHC 35.1 RDW 12.5 Plt Count 182 Sodium 139 Potassium 4.1 Chloride 107 Carbon Dioxide 26 BUN 6 L Creatinine 0.60 L Estimated GFR > 60.0 BUN/Creatinine Ratio 10.0 Glucose 97 Calcium 8.3 L Total Bilirubin 1.1 AST 49 ALT 46 Alkaline Phosphatase 75 Total Creatine Kinase 457 H D Total Protein 6.2 L Albumin 3.5 Globulin 2.7 Albumin/Globulin Ratio 1.3 Amylase Lipase 11/18/18 11/18/18 04:52 04:52 WBC RBC Hgb Hct MCV MCH MCHC RDW Plt Count Sodium Potassium Chloride Carbon Dioxide BUN Creatinine Estimated GFR BUN/Creatinine Ratio Glucose Calcium Total Bilirubin AST ALT Alkaline Phosphatase Total Creatine Kinase Total Protein Albumin Globulin Albumin/Globulin Ratio Amylase 63 Lipase 208 D Assessment & Plan (1) Abdominal pain: Current visit: Yes Status: Acute Assessment & Plan narrative: Patient is a 33-year-old male who was initially found down admitted to the hospital with dehydration some mild rhabdo that is subsequently resolved. He is being actively treated for alcohol withdrawal. He continues to have abdominal pain of unclear etiology. His abdomen is tender and he has been nauseous with emesis. He is hemodynamically stable and has no peritonitis. I reviewed his CT abdomen pelvis which has no evidence of hollow viscus perforation and the pancreas is normal. His laboratory studies suggest that he has some mild elevation in his amylase to 200 but not necessarily enough to explain his picture entirely. He does not have a history of heavy NSAID use due to chronic lower back pain and peptic ulcer disease is a possibility. -Continue Protonix -Scheduled for upper endoscopy 11/20/18 -NPO @ midnight 11/20 -Continue IV fluids
--- NOTE | 2018-11-18 15:59 | CM.IDA ---
Initial DCP Assessment Note: Pt is a 33 yo male, resident of [facility]. Pt was found by hotel staff in a pool of blood, pt presents complaining of days of abd pain. Pt has h/o heavy alcohol use but had been sober since 2011, states he has been binge drinking since finding his in bed w/another man two days ago. PCP: Dr Wilcox Payer: Healthcare Management/[facility] Reviwed chart yesterday and today. Neither Dr Wilcox or Dr Song have requested EMERGENCY ROOM ORDERLY team for SW consult. Dr Wilcox mentions in her last prog note that pt would benefit from their new BHIP program, outpt psychiatric support. This morning at 1015, CIWA was 17, this EMERGENCY ROOM ORDERLY unable to assess. This afternoon, CIWA at 3, although this EMERGENCY ROOM ORDERLY unable to complete thorough assessment. Will ask that EMERGENCY ROOM ORDERLY over the next 24-48 completed DCP/ CD assessment to understand how best to coordinate safe DCP for this pt. Pt scheduled for an upper endoscopy 11.20.18. DONTRELL Chavez
--- NOTE | 2018-11-18 20:15 | PC.NURSE ---
Received call from [facility] police department, officer Ashish Phelan. This patient whom is a confidential patient was reported missing by his (Carolina Mcwilliams). This RN took down the phone number to call back the officer. I spoke with this patient about the phone call and about his being worried. [place] gave this RN permission to call Ashish Phelan back and give them information that he was at [facility] and that the patient will allow only his come to see him.
--- NOTE | 2018-11-18 22:46 | PC.NURSE ---
Pt's CIWA is now 6. pt reports he feels better. he talked to the cannon fire direction specialist today. he also talked to his and sister in law on the phone. pt agreed to remove confidentiality. pt still having abdominal pain and back pain 11/25, alternating oxycodone and dilaudid.
[2018-11-19] VITALS: BP 126/69; PULSE 74; RESP 16; TEMP 37.2; O2SAT 98
[2018-11-19] MEDS: SODIUM CHLORIDE 0.9% FLUSH 10 ML IV ×6 (00:05→20:53)
[2018-11-19] MEDS: KCL 20 MEQ IN NS 1,000 ML 200 MEQ IV ×4 (00:05→22:14)
[2018-11-19] MEDS: HYDROMORPHONE 0.5 MG INJ 1 MG IV ×2 (02:44→10:22)
[2018-11-19 04:24] VITALS: BP 117/62; PULSE 72; RESP 16; TEMP 36.8; O2SAT 98
[2018-11-19] MEDS: OXYCODONE IR 5 MG TABLET PO ×4 (05:08→22:14)
[2018-11-19] MEDS: ONDANSETRON 4 MG/2 ML INJ IV ×3 (05:13→15:03)
[2018-11-19 05:49] LABS: Add Manual Diff / Slide Review NO; Basophils Absolute Auto 0 /uL (0-100); Basophils Percent Auto 0.4 % (0-2); Eosinophils Absolute Auto 100 /uL (0-450); Eosinophils Percent Auto 1.7 % (2-4); Hematocrit 38.6 % (41-53); Hemoglobin 13.8 g/dL (13.5-17.5); Lymphocytes Absolute Auto 1600 /uL (1100-4500); Lymphocytes Percent Auto 25.1 % (25-40); Mean Corpuscular HGB Conc 35.8 % (30-36); Mean Corpuscular Hemoglobin 30.7 PG (26-34); Mean Corpuscular Volume 85.6 fL (80-100); Monocytes Absolute Auto 400 /uL (0-900); Monocytes Percent Auto 6.7 % (3-14); Neutrophils Absolute Auto 4100 /uL (1500-7000); Neutrophils Percent Auto 66.1 % (50-75); Platelet Count 182 X10^3/uL (150-400); Red Blood Cell Count 4.51 X10^6/uL (4.5-5.9); Red Cell Distribution Width 12.4 % (11.6-14.8); White Blood Cell Count 6.2 X10^3/uL (4.5-11.0)
[2018-11-19 06:00] LABS: Alanine Aminotransferase 43 IU/L (21-72); Albumin 3.7 g/dL (3.5-5.0); Albumin Globulin Ratio 1.2 (1.0-2.8); Alkaline Phosphatase 79 U/L (38-126); Aspartate Aminotransferase 41 IU/L (17-59); Blood Urea Nitrogen 7 mg/dL (9-20); Calcium 8.6 mg/dL (8.4-10.2); Carbon Dioxide 26 mmol/L (22-32); Chloride 106 mmol/L (98-107); Estimated Glomerular Filt Rate > 60.0 mL/min (>60); Glucose 96 mg/dL (70-100); HEMOLYSIS < 15 (0-50); Potassium 4.2 mmol/L (3.4-5.1); Sodium 139 mmol/L (137-145); Total Protein 6.7 g/dL (6.3-8.2)
[2018-11-19 08:00] VITALS: BP 127/76; PULSE 60; RESP 18; TEMP 37.3; O2SAT 98
--- NOTE | 2018-11-19 09:06 | PM.PN.1 ---
Subjective Date Patient Seen: 11/19/18 Time Patient Seen: 09:06 Interval history: 33-year-old male admitted to the hospital with alcohol withdrawal and abdominal pain. He was initially quite nauseous and having bouts of emesis but has improved and tolerated clear liquid diet according to the nurse. His abdominal pain has improved and emesis resolved. Exam Vital Signs (past 8 hours): - 11/19/18 04:24 Temperature 98.3 F Pulse Rate 72 Respiratory Rate 16 Blood Pressure 117/62 Pulse Oximetry 98 Oxygen Delivery Method Room Air Oxygen Flow Rate 0 Narrative Exam Narrative: General adult male alert no acute distress Chest nonlabored respirations Abdomen soft mildly tender to palpation in the epigastrium no peritonitis Objective Labs Result Diagrams: 11/19/18 05:15 11/19/18 05:15 Labs: Laboratory Results - last 24 hr 11/18/18 11/18/18 11/19/18 04:52 04:52 05:15 WBC 6.2 RBC 4.51 Hgb 13.8 Hct 38.6 L MCV 85.6 MCH 30.7 MCHC 35.8 RDW 12.4 Plt Count 182 Neut % (Auto) 66.1 Lymph % (Auto) 25.1 [place] % (Auto) 6.7 Eos % (Auto) 1.7 L Baso % (Auto) 0.4 Neut # (Auto) 4100 Lymph # (Auto) 1600 [place] # (Auto) 400 Eos # (Auto) 100 Baso # (Auto) 0 Sodium Potassium Chloride Carbon Dioxide BUN Creatinine Estimated GFR BUN/Creatinine Ratio Glucose Calcium Total Bilirubin AST ALT Alkaline Phosphatase Total Protein Albumin Globulin Albumin/Globulin Ratio Amylase 63 Lipase 208 D 11/19/18 05:15 WBC RBC Hgb Hct MCV MCH MCHC RDW Plt Count Neut % (Auto) Lymph % (Auto) [place] % (Auto) Eos % (Auto) Baso % (Auto) Neut # (Auto) Lymph # (Auto) [place] # (Auto) Eos # (Auto) Baso # (Auto) Sodium 139 Potassium 4.2 Chloride 106 Carbon Dioxide 26 BUN 7 L Creatinine 0.70 Estimated GFR > 60.0 BUN/Creatinine Ratio 10.0 Glucose 96 Calcium 8.6 Total Bilirubin 1.0 AST 41 ALT 43 Alkaline Phosphatase 79 Total Protein 6.7 Albumin 3.7 Globulin 3.0 Albumin/Globulin Ratio 1.2 Amylase Lipase Assessment & Plan Assessment & Plan narrative: 33-year-old male admitted to the hospital after being found down and being treated for alcohol withdrawal. He had abdominal pain and emesis upon admission. He underwent a workup including CT abdomen pelvis which I have reviewed and is unremarkable. His laboratory studies are normal. He tolerated clear liquid diet yesterday without further emesis and his abdominal pain seems to be resolving. Recommend a trial of diet as tolerated today. If he continues to have significant unexplained abdominal pain and is unable to tolerate diet then will plan for upper endoscopy tomorrow to evaluate for peptic ulcer disease. Continue PPI. Quality VTE Deep Vein Thrombosis/Pulmonary Embolism Present on Admission: No
[2018-11-19] MEDS: FOLIC ACID 1 MG TABLET PO (09:35)
[2018-11-19] MEDS: THIAMINE 100 MG TABLET PO (09:35)
[2018-11-19] MEDS: PANTOPRAZOLE 40 MG VIAL IV (09:35)
[2018-11-19] MEDS: MULTIVITAMIN 1 TABLET 1 TAB PO (09:36)
--- NOTE | 2018-11-19 10:13 | DI.MRI.S_ITS ---
PROCEDURE: MR LUMBAR SPINE WO CON INDICATIONS: pain TECHNIQUE: Noncontrast sagittal T1 spin echo and T2 fast echo, sagittal STIR, axial T1 and T2 fast spin echo through the lumbar spine. In cases with scoliosis, additional coronal T2 fast spin echo may be performed. COMPARISON: [facility], CT, CT ABDOMEN PELVIS W CON, 11/16/2018, 13:44. [facility], CR, XR LUMBAR SPINE 2-3V, 10/13/2018, 11:23. [facility], CR, L-SPINE 2-3 VIEWS, 12/20/2014, 18:56. FINDINGS: Image quality: This examination is limited by involuntary motion artifact. Alignment and Curvature: There is normal bony alignment. Bone Marrow: Marrow is of normal overall signal. No acute vertebral body compression fractures. Spinal Cord: Conus medullaris terminates at the L1 level. Visualized cord demonstrates normal signal and size. Paraspinous Soft Tissues: No paravertebral masses. T12-L1: Normal appearance. L1-L2: Normal appearance. L2-L3: Normal appearance. L3-L4: No significant abnormality is seen. L4-L5: Mild loss of disc height is seen. Loss of disc signal is seen. Moderate disc bulge is seen, with a central/left disc extrusion is seen. Regional mass effect is seen, including upon the transiting left L5 and S1 nerve roots. Mild facet joint hypertrophy is seen. [id number] bilateral neural foraminal narrowing is seen. Moderate central canal narrowing is seen. L5-S1: Normal appearance. IMPRESSION: There is a left-sided L4-L5 disc extrusion, with associated regional mass effect. Moderate central canal narrowing is seen at this level. [id number] bilateral neural foraminal narrowing is seen. Dictated by: Louis Blackmon M.D. on 11/19/2018 at 13:18 Approved by: Louis Blackmon M.D. on 11/19/2018 at 13:22
--- NOTE | 2018-11-19 10:17 | PM.PN.1 ---
Subjective Date Patient Seen: 11/19/18 Time Patient Seen: 10:17 Interval history: Alcohol withdrawal. Overall status quo. Symptoms persist although perhaps not quite as intense. Symptoms include nausea with dry with healing. Severe abdominal pain periumbilically. Severe low back pain. Weakness of legs. He relates still having hallucinations. Sleep disorder unable to sleep during the night. Hesitant to get out of bed because he says his legs are ?too weak? Headache persists but has improved. Anticipate EGD tomorrow. Has some interested in trial attempted to eat but is concerned about his dry heaving and is retching Exam Vital Signs (past 8 hours): - 11/19/18 04:24 Temperature 98.3 F Pulse Rate 72 Respiratory Rate 16 Blood Pressure 117/62 Pulse Oximetry 98 Oxygen Delivery Method Room Air Oxygen Flow Rate 0 Narrative Exam Narrative: Patient is resting in bed quiet without TV on appears in no distress. Lungs are clear heart regular rhythm no murmur gallop abdominal exam present bowel sounds normal tenderness some periumbilical upper abdomen primarily. Back exam generalized discomfort to the lumbar area no point tenderness tender in by paraspinous muscle as well as the spine. Has no skin lesions. Extremities show no cyanosis, clubbing or edema He is able lift both legs off the bed and resist pressure. Objective Labs Result Diagrams: 11/19/18 05:15 11/19/18 05:15 Labs: Laboratory Results - last 24 hr 11/18/18 11/18/18 11/19/18 04:52 04:52 05:15 WBC 6.2 RBC 4.51 Hgb 13.8 Hct 38.6 L MCV 85.6 MCH 30.7 MCHC 35.8 RDW 12.4 Plt Count 182 Neut % (Auto) 66.1 Lymph % (Auto) 25.1 [place] % (Auto) 6.7 Eos % (Auto) 1.7 L Baso % (Auto) 0.4 Neut # (Auto) 4100 Lymph # (Auto) 1600 [place] # (Auto) 400 Eos # (Auto) 100 Baso # (Auto) 0 Sodium Potassium Chloride Carbon Dioxide BUN Creatinine Estimated GFR BUN/Creatinine Ratio Glucose Calcium Total Bilirubin AST ALT Alkaline Phosphatase Total Protein Albumin Globulin Albumin/Globulin Ratio Amylase 63 Lipase 208 D 11/19/18 05:15 WBC RBC Hgb Hct MCV MCH MCHC RDW Plt Count Neut % (Auto) Lymph % (Auto) [place] % (Auto) Eos % (Auto) Baso % (Auto) Neut # (Auto) Lymph # (Auto) [place] # (Auto) Eos # (Auto) Baso # (Auto) Sodium 139 Potassium 4.2 Chloride 106 Carbon Dioxide 26 BUN 7 L Creatinine 0.70 Estimated GFR > 60.0 BUN/Creatinine Ratio 10.0 Glucose 96 Calcium 8.6 Total Bilirubin 1.0 AST 41 ALT 43 Alkaline Phosphatase 79 Total Protein 6.7 Albumin 3.7 Globulin 3.0 Albumin/Globulin Ratio 1.2 Amylase Lipase labs reviewed from today unremarkable. MRI of the head yesterday was unchanged. Changes consistent with prior trauma but no acute changes. Assessment & Plan Assessment & Plan narrative: 1. Acute alcohol intoxication resolved. 2. Residual symptoms still unclear whether not these are alcohol withdrawal. History of still somewhat sketchy as to what actually happened. 3. Persistent abdominal pain EGD pending. 4. Significant low back pain that apparently is new. Will get updated MRI of his back. Perhaps adjust paraspinous muscles strain due to rhabdomyolysis will get a repeat CK tomorrow assuming it has improved number returned to normal. That may explain his low back pain however further studies pending. 5. Mental status still somewhat clear seem to have a metabolic encephalopathy. Reassess tomorrow. May benefit from a psychiatric evaluation forthcoming 6. Patient is to get a bed physical therapy to assist Quality VTE Deep Vein Thrombosis/Pulmonary Embolism Present on Admission: No
--- NOTE | 2018-11-19 10:22 | P.PN_ITS ---
Subjective Date Patient Seen: 11/19/18 Time Patient Seen: 10:17 Interval history: Alcohol withdrawal. Overall status quo. Symptoms persist although perhaps not quite as intense. Symptoms include nausea with dry with healing. Severe abdominal pain periumbilically. Severe low back pain. Weakness of legs. He relates still having hallucinations. Sleep disorder unable to sleep during t he night. Hesitant to get out of bed because he says his legs are ?too weak? Headache persists but has improved. Anticipate EGD tomorrow. Has some interested in trial attempted to eat but is concerned about his dry heaving and is retching Exam Vital Signs (past 8 hours): - 11/19/18 04:24 Temperature 98.3 F Pulse Rate 72 Respiratory Rate 16 Blood Pressure 117/62 Pulse Oximetry 98 Oxygen Delivery Method Room Air Oxygen Flow Rate 0 Narrative Exam Narrative: Patient is resting in bed quiet without TV on appears in no distress. Lungs are clear heart regular rhythm no murmur gallop abdominal exam present bowel sounds normal tenderness some periumbilical upper abdomen primarily. Back exam generalized discomfort to the lumbar area no point tenderness tender in by paraspinous muscle as well as the spine. Has no skin lesions. Extremities show no cyanosis, clubbing or edema He is able lift both legs off the bed and resist pressure. Objective Labs Result Diagrams: 11/19/18 05:15 11/19/18 05:15 Labs: Laboratory Results - last 24 hr 11/18/18 11/18/18 11/19/18 04:52 04:52 05:15 WBC 6.2 RBC 4.51 Hgb 13.8 Hct 38.6 L MCV 85.6 MCH 30.7 MCHC 35.8 RDW 12.4 Plt Count 182 Neut % (Auto) 66.1 Lymph % (Auto) 25.1 [place] % (Auto) 6.7 Eos % (Auto) 1.7 L Baso % (Auto) 0.4 Neut # (Auto) 4100 Lymph # (Auto) 1600 [place] # (Auto) 400 Eos # (Auto) 100 Baso # (Auto) 0 Sodium Potassium Chloride Carbon Dioxide BUN Creatinine Estimated GFR BUN/Creatinine Ratio Glucose Calcium Total Bilirubin AST ALT Alkaline Phosphatase Total Protein Albumin Globulin Albumin/Globulin Ratio Amylase 63 Lipase 208 D 11/19/18 05:15 WBC RBC Hgb Hct MCV MCH MCHC RDW Plt Count Neut % (Auto) Lymph % (Auto) [place] % (Auto) Eos % (Auto) Baso % (Auto) Neut # (Auto) Lymph # (Auto) [place] # (Auto) Eos # (Auto) Baso # (Auto) Sodium 139 Potassium 4.2 Chloride 106 Carbon Dioxide 26 BUN 7 L Creatinine 0.70 Estimated GFR > 60.0 BUN/Creatinine Ratio 10.0 Glucose 96 Calcium 8.6 Total Bilirubin 1.0 AST 41 ALT 43 Alkaline Phosphatase 79 Total Protein 6.7 Albumin 3.7 Globulin 3.0 Albumin/Globulin Ratio 1.2 Amylase Lipase labs reviewed from today unremarkable. MRI of the head yesterday was unchanged. Changes consistent with prior trauma but no acute changes. Assessment & Plan Assessment & Plan narrative: 1. Acute alcohol intoxication resolved. 2. Residual symptoms still unclear whether not these are alcohol withdrawal. History of still somewhat sketchy as to what actually happened. 3. Persistent abdominal pain EGD pending. 4. Significant low back pain that apparently is new. Will get updated MRI of his back. Perhaps adjust paraspinous muscles strain due to rhabdomyolysis will get a repeat CK tomorrow assuming it has improved number returned to normal. That may explain his low back pain however further studies pending. 5. Mental status still somewhat clear seem to have a metabolic encephalopathy. Reassess tomorrow. May benefit from a psychiatric evaluation forthcoming 6. Patient is to get a bed physical therapy to assist Quality VTE Deep Vein Thrombosis/Pulmonary Embolism Present on Admission: No
[2018-11-19 12:00] VITALS: BP 132/70; PULSE 80; RESP 18; TEMP 36.9; O2SAT 98
[2018-11-19] MEDS: HYDROMORPHONE 1 MG INJ IV ×3 (14:12→20:52)
--- NOTE | 2018-11-19 14:58 | CM.DANOTE ---
Patient is a 33 year old male who was admitted on 11/16/18 for Vomiting Blood. Pt has [facility] and [facility] for insurance and his PCP is Dr. Krissy Wilcox. EMR was reviewed. Per MD, pt with ongoing back pain and vomiting/nausea and per Surg Consult if pt continues to not tolerate food today then scheduled Upper Endo for Tuesday11/20/18 morning. Per RN, pt to have another MRI today of his lower back due to ongoing pain and CIWA has gone down to about a score of 2. PT/OT ordered and pending. SW met bedside with pt and spouse Josselin and explained role and pt verbally confirmed that he was agreeable with SW discussing medical and other concerns with Josselin in the room. Pt makes very infrequent eye contact and does not participate much in the conversation and allows for Josselin to answer and ask questions. Pt lives at home in [place] with his spouse and two young children at home. Pt works currently for the [employer] and employers are aware that he is currently admitted to the hospital. Spouse works at [employer] business administration professor and has a parenting plan in place with the pt regarding their children. 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 MH hx: Pt denies any hx or MH treatment but confirms that he and his spouse very recently had marital problems which triggered him to begin drinking heavily. Pt appears to have flat affect and denying the severity that his drinking had on him medically and appears to be depressed in mood. CD hx: Patient has been an alcoholic for many years with periods of time of sobriety. Pt typically binge drinks and has large volumes of alcohol that he consumes. Pt also has a hx of drug seeking behavior of going to multiple medical offices and emergency departments seeking pain medication, the most recent was about 2 years ago. CD tx: Patient has a hx of completing Inpt CD tx at for 21 days before discharging back home with outpt services set up. Pt then relapsed after a while and began drinking heavily and drug seeking for pain medications about 2 years ago before he began outpt treatment and was sober for the past 2 years but was not enrolled or involved in any further supportive counseling or treatment. Spouse states that pt has basically been a dry drunk the past 2 years. Marital issues were the triggering event that lead to the pt's relapse and 3 days of binge drinking at a hotel where he was found down for undetermined amount of time and body fluids surrounding him. Legal: denies. Car was impounded due to parking illegally and spouse working to get car out of impound. Family/Supports: Patient is employed and has remained sober but without any additional supportive services in place to help with sobriety. Pt is currently going through marital problems and is concerned about his relationship status. Pt is asking about his 3 year old son and is concerned with being able to see him while he is at the hospital. Plan: SW and RN discussed with pt and spouse regarding the MRI and PT/OT evals to determine any medical recommendations for d/c planning and pt and spouse aware of SNF rehab from other family members in case pt is below baseline with mobility and strength. Spouse states that pt is minimizing his drinking and the impact on his body but that pt is agreeable with outpt CD treatment resources. Spouse feels [facility] could be a great resource but concerned that since she works there business administration professor that pt may not feel comfortable seeking help where she works. Pt has had success with Vivitrol injection for his alcohol dependence and spouse is aware that pt will have access to this through the [employer] after discharge. Further d/c discussion and resources postponed as staff appeared with w/c to take pt to MRI. SW to follow closely after PT/OT eval and recommendations and MRI results are back to determine if pt's pain is attributed to his alcohol withdrawal or other medical cause. recommending possible Psych Consult, no order in computer, to possibly happen inpt vs outpt referral. DONTRELL York Discharge Planning/Care Management CM Discharge Assessment Start: 11/19/18 14:56 Freq: Status: Active Protocol: Document 11/19/18 14:56 BF (Rec: 11/19/18 14:58 [id number]) Discharge Planning Assessment Assigned Weatherization Technician DONTRELL Pedersen DPOA/Assigned Designee Name none Advance Directives? No History Provided By Patient Significant Other Medical Record Has Patient been admitted in last 30 No days? Prior Living Arrangements House Household Members family Type of transporation used prior to Drives own vehicle admit Independent with ADL's Yes Is patient alert and oriented? Yes Caregiver for Another Yes: 2 children in the home Patient/Family Preference Drug/Alcohol Rehab Discharge Plan Home Transportation Arrangement Spouse bedside and can likely help with transportation at d/ c. Additional Comment Waiting for MRI and PT/OT eval to determine additional d/c needs beyond CD resources Whiteboard Updated in Patient Room with Yes name and ext. # of Weatherization Technician Review Status In Process Please Provide Date Initial DC 11/19/18 Assessment Was Performed Next Review Type Continued Stay Review
--- NOTE | 2018-11-19 15:00 | PT.IIE ---
Current Diagnoses Dehydration (11/16/18) Alcohol use, unspecified with intoxication, unspecified (11/16/18) Anxiety disorder, unspecified (11/16/18) Other chronic pain (11/16/18) Gastrointestinal hemorrhage, unspecified (11/16/18) Dorsalgia, unspecified (11/16/18) Unspecified abdominal pain (11/16/18) Toxic effect of unspecified alcohol, accidental (unintentional), initial encounter (11/16/18) Surgical History (Last Reviewed 11/18/18 @ 13:40 by Ej Magana MD) Anesthesia (Resolved) History of brain surgery (Resolved) Medical History (Last Reviewed 11/18/18 @ 13:40 by Ej Magana MD) Chronic back pain (Chronic) Alcohol abuse (Resolved) Traumatic brain injury (Chronic ~04/2011) Anxiety (Resolved) Sternum fx (Resolved) Physical Therapy Inpatient Evaluation/Re-Eval M1 PT/OT-IP Prior Functional Status Start: 11/19/18 14:44 Freq: NEEDED Status: Active Protocol: Document 11/19/18 14:20 DCW (Rec: 11/19/18 15:00 DCW [id number]) Medical Review Prior Functional Status Medical History Reviewed No Diet/Fluid Consistency Regular Mobility and Gait Pt was fully independent with all gait and ADLs Social History Household Members family Living Arrangements House Number of Stairs To Enter/Railing? 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 Employed M2 PT-IP Current Condition Start: 11/19/18 14:44 Freq: NEEDED Status: Active Protocol: Document 11/19/18 14:20 DCW (Rec: 11/19/18 15:00 DCW [id number]) Physical Therapy Current Condition Current Condition Evaluation Date 11/19/18 Treatment Diagnosis weakness, back pain Onset Date 11/16/18 Weight Bearing Status Weight Bearing Status Full Weight Bearing M3 PT-IP Subjective Start: 11/19/18 14:44 Freq: NEEDED Status: Active Protocol: Document 11/19/18 14:20 DCW (Rec: 11/19/18 15:00 DCW [id number]) Subjective Physical Therapy Visit Type Type Initial Evaluation Visit Start Time 14:20 Visit Stop Time 14:47 Total Visit Minutes 27 Notes Pt is a 33 year old male recovering alcoholic. Pt had been sober for two years until 11/15/18, when he returned home and found his with another man. The left his home , went to a hotel, and drank all night. In the morning, pt was found unresponsive by housekeeping and appeared to have been vomiting blood. Pt was brought to the ED, and began complaining of severe abdominal and low back pain. Pt was admitted for ETOH poisoning, which he appears to be recovering from, however his new complaints of severe low back pain, which have effected his LE strength have resulted in a referral for PT. Number of YOUTH SERVICES SPECIALIST Visits 0 Physical Therapy Visit Comments Patient Comments I just need to get out of here and get home. I need my back. 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 I need to lift for my job. I just need out of here. Patient Goals Return home with decreased back pain. Therapy Pain Assessment Pain When Pain Assessed At Rest Pain Present Pain Present Pain Reported Location Back Intensity 9 Scale Used Numeric (1 - 10) M4 PT-IP Mobility and Gait Start: 11/19/18 14:44 Freq: NEEDED Status: Active Protocol: Document 11/19/18 14:20 DCW (Rec: 11/19/18 15:00 DCW [id number]) PT-Bed Mobility Assessment Rolling Type of Rolling Roll to Right Level of Assist Independent Supine to Sit Supine to Sit Independent Sit to Supine Sit to Supine Independent Scooting Scooting to Edge of Bed Independent PT-Transfer Assessment Sit to and From Stand Sit to and from Stand Standby Assistance Equipment Transfer Assistive Device Front Wheeled Walker Gait Assessment Gait Gait Assistance Required: Standby Assistance Distance (Feet) 35 Able to Maintain Weight Bearing Status Yes During Gait Assistive Devices Assistive Device Front Wheeled Walker Orthotic/Prosthetic Devices or Brace: No Gait Deviations General Gait Pattern Decreased Stride Length Decreased Feet Clearance Flexed Trunk Narrow Based Gait Factors Limiting Gait Function Factors Limiting Gait Function Decreased Strength Pain Comments Gait Comments Pt ambulated 35' in room SBA using FWW. Pt reported his legs felt shakey, however he was able to maintain upright posture. Pt fatigued very quickly, admitted this was the most activity I've done in days. M5 PT-IP Objective Assessments Start: 11/19/18 14:44 Freq: NEEDED Status: Active Protocol: Document 11/19/18 14:20 DCW (Rec: 11/19/18 15:00 DCW [id number]) Orientation Orientation/Cognition Level of Alertness Alert Comments A&O x3 Strength Lower Extremity Strength Assessment Bilaterally Impaired Comments Strength Comments Pt unable to tolerate full LE resistance due to increased low back pain, tested ~4-/5 M7 PT-IP Assessment and Plan Start: 11/19/18 14:44 Freq: NEEDED Status: Active Protocol: Document 11/19/18 14:20 DCW (Rec: 11/19/18 15:00 DCW [id number]) PT Summary Assessment and Plan Potential Rehabilitation Potential Excellent Status of Condition at Evaluation Stable Summary Impairments Pain Strength Gait Assessment Summary Pt presents with generalized weakness and deconditioning secondary to severe back pain. Pt had just returned from a low back MRI prior to PT eval, which may help to diagnose source of pain. Pt ambulation unsafe at this time due to pain and instability, however if pt's pain is able to be controlled, he would likely be appropriate for discharge home. Pt will need to demonstrate ability to ascend/ descend stairs safely prior to home d/c. Goals Gait Goal Independent Gait Distance 200 Other Goals Ascend/descend 3 steps with step-through gait pattern and no rail Days to Meet Goals 2 Frequency of Treatment Frequency Of Treatment Once a Day Treatment Plan Physical Therapy Treatment Plan Gait Training Therapeutic Exercise Other Recommendations and Next Treatment Gait training, activity Focus tolerance, stairs Recommendations To Nursing Amount of Assist Needed Standby Assistance Discharge Recommendations PT Discharge Recommendations Home
[2018-11-19 15:38] VITALS: BMI 31.4
[2018-11-19 16:10] VITALS: BP 135/82; PULSE 77; RESP 16; TEMP 37.5; O2SAT 97
--- NOTE | 2018-11-19 16:18 | OT.IP.EVAL ---
Current Diagnoses Dehydration (11/16/18) Alcohol use, unspecified with intoxication, unspecified (11/16/18) Anxiety disorder, unspecified (11/16/18) Other chronic pain (11/16/18) Gastrointestinal hemorrhage, unspecified (11/16/18) Dorsalgia, unspecified (11/16/18) Unspecified abdominal pain (11/16/18) Toxic effect of unspecified alcohol, accidental (unintentional), initial encounter (11/16/18) Past Medical History (Last Reviewed 11/18/18 @ 13:40 by Ej Magana MD) Chronic back pain (Chronic) Alcohol abuse (Resolved) Traumatic brain injury (Chronic ~04/2011) Anxiety (Resolved) Sternum fx (Resolved) Surgical History (Last Reviewed 11/18/18 @ 13:40 by Ej Magana MD) Anesthesia (Resolved) History of brain surgery (Resolved) Occupational Therapy Inpatient Evaluation/Re-Eval M1 PT/OT-IP Prior Functional Status Start: 11/19/18 14:44 Freq: NEEDED Status: Active Protocol: Document 11/19/18 16:05 CGR (Rec: 11/19/18 16:18 CGR [id number]) Medical Review Prior Functional Status Medical History Reviewed No Diet/Fluid Consistency Regular Communication Pt is able to communicate effectively. Mobility and Gait Pt was fully independent with all gait and ADLs Activities of Daily Living and IADL's Pt was IND in all ADLs and IADLs prior to admit. Social History Household Members spouse children Living Arrangements House Number of Floors (Floors) One Floor Number of Stairs To Enter/Railing? 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 He has 2 children, a 4yo and a 3 month old. M2 OT-IP Current Condition Start: 11/19/18 16:05 Freq: Status: Active Protocol: Document 11/19/18 16:05 CGR (Rec: 11/19/18 16:18 CGR [id number]) Occupational Therapy Current Condition Current Condition Evaluation Date 11/19/18 Treatment Diagnosis Back pain Post Operative Precautions Other Precautions General back precautions after back injury M3 OT- IP Subjective and Pain Start: 11/19/18 16:05 Freq: Status: Active Protocol: Document 11/19/18 16:05 CGR (Rec: 11/19/18 16:18 CGR [email or web address]) OT- Subjective Occupational Therapy Visit Type Type Initial Evaluation Visit Start Time 15:40 Visit Stop Time 16:05 Total Visit Minutes 25 Notes Pt is a 33 year old male recovering alcoholic. Pt had been sober for two years until 11/15/18, when he returned home and found his with another man. The left his home , went to a hotel, and drank all night. In the morning, pt was found unresponsive by housekeeping and appeared to have been vomiting blood. Pt was brought to the ED, and began complaining of severe abdominal and low back pain. Pt was admitted for ETOH poisoning, which he appears to be recovering from, however his new complaints of severe low back pain, which have effected his LE strength and ability to perform ADLs. Occupational Therapy Visit Comments Patient Comments Man my back hurts, this is too much. OT Pain Assessment Pain When Pain Assessed At Rest Pain Present Pain Present Pain Reported Location Head Intensity 10 Scale Used Numeric (1 - 10) Management Techniques Distraction Re-positioning M4 OT- IP ADL's Start: 11/19/18 16:05 Freq: Status: Active Protocol: Document 11/19/18 16:05 CGR (Rec: 11/19/18 16:18 CGR [id number]) OT [id number] Comments OT Self-Feeding Comments Not meal time OT ADL-Grooming General Evaluation Grooming Ability Standby Assistance Areas Needing Assistance Retrieving/Set-up of Grooming Items Face Washing Comments OT Grooming Comments supported sitting in bed OT ADL-Oral Care General Eval Oral Care Ability Standby Assistance Areas of Assistance Brushing Teeth Comments Oral Care Comments supported sitting in bed OT ADL-Dressing General Eval Lower Body Dressing Ability Total Assistance Areas Needing Assistance Socks Comments OT Dressing Comments Pt states he is unable to reach his feet at this time d/ t pain. OT ADL-Toileting General Evaluation Toileting Ability Independent Devices Toileting Assistive Devices Urinal Comments OT Toileting Comments supported sitting in bed. OT ADL-Bathing Comments OT Bathing Comments Not performed in this session. M5 OT- IP IADL's Start: 11/19/18 16:05 Freq: Status: Active Protocol: Document 11/19/18 16:05 CGR (Rec: 11/19/18 16:18 CGR [email or web address]) OT-Instrumental Activities of Daily Living Deficits IADL Deficits Identified Deficits Home Safety Awareness Awareness of Need for Assistance at Home Good Awareness Ability to Problem Solve Emergency Able to Problem Solve Situations Medication Management Medication Management No Deficits Identified Money Management Money Management No Deficits Identified Meal Preparation Meal Preparation Caregiver Provides Assist Obstetrics Specialist Obstetrics Specialist Caregiver Provides Assist M6 OT- IP Functional Cognition Start: 11/19/18 16:05 Freq: Status: Active Protocol: Document 11/19/18 16:05 CGR (Rec: 11/19/18 16:18 CGR [id number]) Cognitive Factors Limiting Selfcare Function Cognitive Ability Level of Alertness Alert Patient Orientation Name Age Birthday Month Date Year Day of Week Place Situation Attention Span Ability Capable of Focused Attention Capable of Sustained Attention Ability to Follow Commands Able to Follow One Step Commands with Increased Time Able to Follow One Step Commands with Repetition Memory Description No Deficits Noted Safety Awareness No Deficits Noted Problem Solving Ability No deficits Noted Executive Function Ability No Deficits Noted Abstract Thinking Ability No Deficits Noted Cognitive Comments Cognitive Assessment Comments Pain appears to be making focusing difficult OT- Vision and Hearing OT- Hearing Assessment OT- Hearing Assessment WFL OT- Vision Assessment Visual Acuity WFL Visual Attentiveness WFL Occular Pursuits WFL Visual Convergence WFL Visual Brenner WFL M7 OT- IP Mobility and Balance Start: 11/19/18 16:05 Freq: Status: Active Protocol: Document 11/19/18 16:05 CGR (Rec: 11/19/18 16:18 CGR [email or web address]) OT- Bed Mobility Assessment Rolling Type of Rolling Log Rolling Level of Assistance Contact Guard Assistance Supine to Sit Supine to Sit Assist Standby Assistance Sit to Supine Sit to Supine Assist Standby Assistance Scooting Scooting to Edge of Bed Standby Assistance OT-Transfer Assessment Sit to and From Stand Sit to and from Stand Standby Assistance Devices Transfer Assistive Devices None Comments Mobility Comments Pt stood bedside and took side steps up and down bed. OT- Balance Assessment Sitting Balance and Reactions Static Sitting Balance Ability Good Dynamic Sitting Balance Ability Fair M8 OT- IP Objective Assessments Start: 11/19/18 16:05 Freq: Status: Active Protocol: Document 11/19/18 16:05 CGR (Rec: 11/19/18 16:18 CGR [email or web address]) OT Gross Range of Motion Upper Extremity Range of Motion Assessment Within Functional Limits OT Strength Upper Extremity Strength Assessment Within Functional Limits Comments Strength Comments tested 4/5 d/t pain OT- Coordination Assessment Upper Extremity Finger to Nose Test Within Functional Limits Finger Tapping Test Within Functional Limits OT-Muscle Tone Assessment Muscle Tone WNL Yes OT Sensation Assessment Comments Summary Comments No sensation deficits noted Edema Edema Absent M9 OT- IP Assessment and Plan Start: 11/19/18 16:05 Freq: Status: Active Protocol: Document 11/19/18 16:05 CGR (Rec: 11/19/18 16:18 CGR [email or web address]) OT Summary Assessment and Plan Potential Rehabilitation Potential Good Analytic Complexity at Evaluation Low Summary OT Impairments Pain Functional Mobility Grooming Dressing Toileting Bathing Toilet Transfers Shower Transfers Progress Towards Goals Slow Progress due to Pain Assessment Summary Pt presents with significant back pain that is preventing him from being fully mobile and participating in ADLs. Pt will benefit from further back precaution education and LB dressing equipment training if back pain does not improve. MRI done today. Goals Grooming Goal Independent Dressing Goal Independent Toileting Goal Independent Bathing Goal Independent Toilet Transfer Goal Independent Shower Transfer Goal Independent Days to Meet Goals 5 Frequency of Treatment Frequency Of Treatment Once a Day Treatment Plan OT Treatment Plan ADL Training Functional Mobility Patient/Family Education Discharge Planning Other Treatment Recommendations and Next LB dressing with DME Treatment Focus Discharge Recommendations OT Discharge Recommendations Home with Assistance Home Equipment Needs TBD
--- NOTE | 2018-11-19 17:29 | PC.NURSE ---
Addendum entered by Dorie Lares R.N. 11/19/18 23:32: Taking oral foods and fluids well without any GI complaints. Encouraged position changes in bed to aid in back pain relief. Pt now agreeable to calf scd's and these were placed with explanation of rationale. Addendum entered by Dorie Lares R.N. 11/19/18 21:07: Pt reports iv dilaudid manages back pain better than po oxycodone. Offered ice to back and pt accepts. Ice pack provided. Pt admits to anxiety. Requests med for same. Also requests meds to aid in bowel function. Dr. Song was contacted by telephone and this was discussed. Orders obtained and entered by this science writer. Addendum entered by Dorie Lares R.N. 11/19/18 17:32: Pt refuses scd's. Instructed pt in ankle waving and calf pumping. Pt provides return demonstration. Original Note: Pt requests pain meds to manage c/o lower back pain 01/25 @ beginning of shift. Oxycodone was administered. Admits to little bit of nausea. Pt reports to NATUROPATHIC ONCOLOGY PROVIDER very little relief from oxycodone. Also admits to abdominal pain. States oxycodone takes, edge off. Administered 1 mg iv dilaudid for pain. Pt is able to take general diet slowly.
[2018-11-19 20:42] VITALS: BP 127/77; PULSE 72; RESP 16; TEMP 37.2; O2SAT 100
[2018-11-19] MEDS: MAGNESIUM HYDROXIDE 30 ML UDC PO (22:14)
[2018-11-19] MEDS: DOCUSATE 100 MG CAPSULE PO (22:14)
[2018-11-19] MEDS: LORazepam 1 MG TABLET PO (22:14)
[2018-11-20] VITALS (20 sets, daily range): BP systolic 109–151; BP diastolic 64–86; PULSE 63–88; RESP 9–20; TEMP 36.5–37.2; O2SAT 94–99; BMI 31.4
[2018-11-20] MEDS: HYDROMORPHONE 1 MG INJ IV ×3 (00:15→06:17)
[2018-11-20] MEDS: ONDANSETRON 4 MG/2 ML INJ IV ×3 (00:26→14:12)
--- NOTE | 2018-11-20 01:04 | PC.NURSE ---
Addendum entered by Ericka Feldman R.N. 11/20/18 06:51: Reporting this morning that earlier tonight he woke and thought he saw someone sitting on the window seat and heard them cough. Denies any other visual or auditory disturbances. Addendum entered by Ericka Feldman R.N. 11/20/18 06:22: Requested/medicated with Dilaudid for complaint of 8.9 back pain. Also complaining of nausea so medicated with Zofran. Addendum entered by Ericka Feldman R.N. 11/20/18 05:32: Complaining of moderate anxiety but no hallucinations or auditory disturbances. CIWA is 6; medicated with Ativan for anxiety per patient request. Addendum entered by Ericka Feldman R.N. 11/20/18 03:22: Complaining of 9/10 lower back pain and 4/5 chronic headache; medicated with Dilaudid. Addendum entered by Ericka Feldman R.N. 11/20/18 01:21: Patient requested SCD's be removed due to everytime I just get to sleep they go off and wake me up. Reminded to ankle wave when awake. Original Note: 0020 Patient is alert and oriented but anxious with multiple complaints. Breath sounds CTA with RA sat of 97%. HRR and telemetry reading was SR. BP elevated at 145/80. Complains of mild nausea; medicated with Zofran. States lower abdominal burning sensation. Complains of 10/10 lower back pain; medicated with Dilaudid. BT present and is passing flatus. Currently NPO for possible EGD in a.m.; patient verbalizes understanding. Is able to turn himself in bed. Using urinal and denies dysuria, frequency or urgency. CIWA score is 3. CMS is intact bilaterally. Wearing calf SCD's. Fall risk score is high and bed alarm is activated.
[2018-11-20] MEDS: LORazepam 0.5 MG TABLET PO ×2 (05:31→14:12)
[2018-11-20 05:47] LABS: BUN Creatinine Ratio 12.9 (6-22); Blood Urea Nitrogen 9 mg/dL (9-20); Calcium 8.8 mg/dL (8.4-10.2); Carbon Dioxide 30 mmol/L (22-32); Chloride 101 mmol/L (98-107); Creatine Kinase 111 U/L (55-170); Estimated Glomerular Filt Rate > 60.0 mL/min (>60); Glucose 109 mg/dL (70-100); HEMOLYSIS < 15 (0-50); Potassium 4.1 mmol/L (3.4-5.1); Sodium 139 mmol/L (137-145)
--- NOTE | 2018-11-20 08:40 | PC.NURSE ---
Patient picked up for EGD, consent signed and in the chart.
--- NOTE | 2018-11-20 08:43 | P.PN_ITS ---
Subjective Date Patient Seen: 11/20/18 Time Patient Seen: 08:38 Interval history: Alcohol intoxication. Three much more alert today. Retching is essentially stop. He does have some heartburn. Also readily admits to having fair amount of anxiety. Primary complaint is his back pain. Low back denies any leg pain he has been out of bed and ambulating but with some difficulty. Requests switching to oxycodone as of last longer than the Dilaudid. Patient anticipates being discharged home apparently his other issues forthcoming referable to his substance use. Exam Vital Signs (past 8 hours): - 11/20/18 05:20 Temperature 98.5 F Pulse Rate 63 Respiratory Rate 18 Blood Pressure 146/79 H Pulse Oximetry 99 Oxygen Delivery Method Room Air Oxygen Flow Rate 0 Narrative Exam Narrative: The patient is much more alert today and oriented. Conversant and appropriate. Making plans for his future. Lungs are clear heart regular rhythm no murmur gallop abdomen is beer still runner compounder in the midepigastrium. Back exam just generalized discomfort no point tenderness SI joint nontender sacral notch nontender Objective Labs Result Diagrams: 11/19/18 05:15 11/20/18 05:20 Labs: Laboratory Results - last 24 hr 11/20/18 05:20 Sodium 139 Potassium 4.1 Chloride 101 Carbon Dioxide 30 BUN 9 Creatinine 0.70 Estimated GFR > 60.0 BUN/Creatinine Ratio 12.9 Glucose 109 H Calcium 8.8 Total Creatine Kinase 111 D Labs from today is reviewed CK has decreased to 111 approaching normal. Hemoglobin is stable. MRI of lumbar spine is reviewed he has disc extrusion and on the left L4-L5. O rthopedic consult forthcoming Assessment & Plan Assessment & Plan narrative: 1. Presumed alcohol intoxication resolved. 2. Presumed alcohol withdrawal symptoms have improved significantly. 3. No evidence for any chronic liver disease. 4. Presumed alcoholic gastritis to be found EGD today forthcoming. 5. Back pain is seems to be his main symptom now. He has abnormal MR as stated. Orthopedic consult to assess suspect patient would benefit physical therapy as an outpatient compliance may be an issue. Will switch from IV Dilaudid to oral oxycodone anticipation being on this medication when he is discharged. 6. Apparently there is some discharge planning forthcoming with and social service. Likely be involved in outpatient alcohol treatment program. 7. Patient is ambulating and a getting some strength back I suspect his aches and pains are from his rhabdomyolysis CK is approaching normal but is muscles are still somewhat probably sore. This should resolve over the next several weeks however. He will benefit from physical therapy acutely may well benefit from physical therapy as an outpatient again compliance may be an issue. 8. Hemoglobin stable. 9. Social service to discuss the discharge planning with patient and with family 10. Chronic anxiety I suspect. He will be discharged on Ativan as an outpatient Quality VTE Deep Vein Thrombosis/Pulmonary Embolism Present on Admission: No
[2018-11-20] MEDS: SODIUM CHLORIDE 0.9% 1,000 ML 100 ML IV (08:47)
--- NOTE | 2018-11-20 09:02 | PM.PREOP ---
Pre-operative Note Interval Note History & Physical reviewed/Exam performed by Physician: Yes Changes to H&P: No ASA Class (for procedural sedation): III
[2018-11-20] MEDS: LIDOCAINE 4% SOLN 50 ML 20 ML TOP (09:14)
[2018-11-20] MEDS: MIDAZOLAM 5 MG/5 ML VIAL IV (09:15)
--- NOTE | 2018-11-20 09:24 | PM.OP.ENDO ---
Operative Date/Time/Diagnoses Date of procedure: 11/20/18 Time of procedure: 09:24 Pre-op diagnosis: acute abdominal pain Post-op diagnosis: same Procedure & Clinicians Study performed: Esophagoduodenoscopy Same procedure as scheduled: Yes Indications: acute abdominal pain Surgeon: Ej Magana Procedure Notes SCOAP/Timeout: performed Procedure in detail: Patient placed supine on the bed. A time-out was performed to ensure the correct patient procedure necessary equipment within the operating room. He endoscopy scope was carefully inserted into the mouth oropharynx and then passed into the esophagus and stomach. There was some retained food products within the stomach. The there were no ulcerations or gastric outlet obstruction. The 2 the duodenum was intubated and was normal in its appearance. Retroflexion was performed which demonstrated no presence of hiatal hernia. The stomach was desufflated the scope was carefully withdrawn the Z-line was identified at 36 cm from the incisors. The stomach the scope was then withdrawn. Scope withdrawal time: NA Sedation minutes: 12 Specimen(s): none sent Complications: none Impression: Normal esophagoduodenoscopy Plan for aftercare: Return to hospital freed Disposition: PACU
[2018-11-20] MEDS: fentaNYL 250 MCG/5 ML INJ IV (09:40)
--- NOTE | 2018-11-20 10:25 | SUR.PHASEI ---
Pt transferred back to room 226 via bed. Last vital signs and condition stable; see assessment and vitals flowsheets for details. Report given to LIZ Floyd prior to transfer. [place] at bedside upon arrival to 226 and to assume care of pt at this time.
--- NOTE | 2018-11-20 10:53 | PC.NURSE ---
Patient back from procedure. Denies pain at this time. VSS. Patient eager to start eating, advance as tolerated. Denies n/v at this time, wants to wait a little longer to try his oral medications this morning. Resting comfortably at this time, call light and urinal within reach.
[2018-11-20] MEDS: PANTOPRAZOLE 40 MG VIAL IV (11:07)
[2018-11-20] MEDS: SODIUM CHLORIDE 0.9% FLUSH 10 ML IV ×3 (11:08→20:39)
[2018-11-20] MEDS: MULTIVITAMIN 1 TABLET 1 TAB PO (11:08)
[2018-11-20] MEDS: THIAMINE 100 MG TABLET PO (11:08)
[2018-11-20] MEDS: FOLIC ACID 1 MG TABLET PO (11:08)
--- NOTE | 2018-11-20 11:58 | PM.CHAP ---
Chava is in a lot of back pain. He requested a adoption worker visit.
[2018-11-20] MEDS: OXYCODONE IR 5 MG TABLET 10 MG PO ×3 (12:43→20:39)
--- NOTE | 2018-11-20 13:11 | PT.IPTN ---
Current Diagnoses Dehydration (11/16/18) Alcohol use, unspecified with intoxication, unspecified (11/16/18) Anxiety disorder, unspecified (11/16/18) Other chronic pain (11/16/18) Gastrointestinal hemorrhage, unspecified (11/16/18) Dorsalgia, unspecified (11/16/18) Unspecified abdominal pain (11/16/18) Toxic effect of unspecified alcohol, accidental (unintentional), initial encounter (11/16/18) Surgery Performed Operation Date: 11/20/18 11:45 Actual Procedures p Esophagogastroduodenoscopy - Ej Magana MD Physical Therapy Treatment Note Notes Pt with significant findings on MRI, awaiting ortho consult , will hold PT sessions until after this.
--- NOTE | 2018-11-20 13:15 | OT.IP.TRT ---
Current Diagnoses Dehydration (11/16/18) Alcohol use, unspecified with intoxication, unspecified (11/16/18) Anxiety disorder, unspecified (11/16/18) Other chronic pain (11/16/18) Gastrointestinal hemorrhage, unspecified (11/16/18) Dorsalgia, unspecified (11/16/18) Unspecified abdominal pain (11/16/18) Toxic effect of unspecified alcohol, accidental (unintentional), initial encounter (11/16/18) Surgery Performed Operation Date: 11/20/18 11:45 Actual Procedures p Esophagogastroduodenoscopy - Ej Magana MD Occupational Therapy Treatment Note M2 OT-IP Current Condition Start: 11/19/18 16:05 Freq: Status: Active Protocol: Document 11/19/18 16:05 CGR (Rec: 11/19/18 16:18 CGR [id number]) Occupational Therapy Current Condition Current Condition Evaluation Date 11/19/18 Treatment Diagnosis Back pain Post Operative Precautions Other Precautions General back precautions after back injury M3 OT- IP Subjective and Pain Start: 11/19/18 16:05 Freq: Status: Active Protocol: Document 11/20/18 13:14 CGR (Rec: 11/20/18 13:15 CGR [id number]) OT- Subjective Occupational Therapy Visit Type Type Administrative Note Notes MRI results show L4-5 L disc extrusion with mass effect. Will hold for ortho consult.
--- NOTE | 2018-11-20 13:16 | PC.NURSE ---
Late documentation from yesterday 11/19 (addendum) : Patient continues to report pain levels in his back and abdomen of 12/26. Discussed with Dr. Song, and he increased frequency of IV dilaudid. Patient declines offer for ice or warm blankets to back. Able to turn himself independently in bed. Plan for lumbar MRI and PT/OT today. Continue to monitor pain levels.
--- NOTE | 2018-11-20 13:28 | PC.NURSE ---
Addendum entered by Grace Dodson R.N. 11/20/18 14:56: Spoke w/ Dr Randhawa about pain as described below. No new orders at this time. Addendum entered by Grace Dodson R.N. 11/20/18 14:22: Assumed care: Assumed care of this patient approx [phone]. He was up to [facility] with RESEARCH LEADER and C/O nausea and terrible lower back pain that he rates 03/27. C/O anxiety also. This casualty underwriter admin IV Zofran for the nausea + 0.5 mg PO Ativan for anxiety. No other pain meds available as an option, message left for Dr Randhawa (who is covering for Song) and awaiting call back. Will offer ice/heat to patient in the meantime. Patient back in bed now. Seizure precautions and fall precautions in place. Light in reach, bed alarm on. Original Note: Patient sitting up in bed, eating his meal, states oxycodone is helping its not like the dilaudid but its manageable. Declines further interventions or needs at this time. Call light and urinal within reach. Tele DC'd. SLIV maintained. High fall precautions continued.
[2018-11-20] MEDS: LORazepam 1 MG TABLET PO ×2 (16:28→20:39)
--- NOTE | 2018-11-20 16:54 | PC.NURSE ---
Pt is rating pain 10/10 and appears asymptomatic. Pt voiced frustration at having his IV Dilaudid DC'd and moved over to po pain meds. He is able to sleep. He was given an ice pack in addition to the pain medications.
--- NOTE | 2018-11-20 17:53 | PM.CN ---
History of Present Illness Date Patient Seen: 11/20/18 Time Patient Seen: 17:53 Chief complaint: Vomiting blood Reason for consult: Low back pain Requesting provider: Brant Song Narrative: 33-year-old gentleman admitted for gastritis and alcohol related medical issues complaining of low back pain. Patient gives a long history of pain into the lower back. Had x-rays few months ago. Patient states that due to being supine for the last few days as seem to really aggravate his lower back. Complaining of pain and muscle spasms. Denies any numbness or weakness in the legs. Has pain when trying to have a bowel movement but denies any bowel or bladder dysfunction. The pain seems to be more due to spasms. Has yet to be up with physical therapy. 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) Anxiety (Resolved) Sternum fx (Resolved) Surgical History Anesthesia (Resolved) History of brain surgery (Resolved) Family History Father Cancer Diabetes mellitus History of heart disease Hypertension Hyperlipidemia Stroke Grandfather Cancer Diabetes mellitus History of heart disease Hypertension Stroke Grandmother Diabetes mellitus History of heart disease Hypertension Social History marital status: unmarried,single number of children: 2 household members: spouse and children lives independently: Yes occupational status: employed Smoking Status: Never smoker alcohol intake: former substance use type: does not use Family History Father Cancer Diabetes mellitus History of heart disease Hypertension Hyperlipidemia Stroke Grandfather Cancer Diabetes mellitus History of heart disease Hypertension Stroke Grandmother Diabetes mellitus History of heart disease Hypertension Social History marital status: unmarried,single number of children: 2 household members: spouse and children lives independently: Yes occupational status: employed Smoking Status: Never smoker alcohol intake: former substance use type: does not use Meds Home Medications Medication Instructions Recorded Confirmed Type buspirone 7.5 mg tablet 7.5 mg PO DAILY PRN tab 10/09/18 11/16/18 History meloxicam 15 mg tablet 15 mg PO DAILY #30 tab 10/24/18 11/16/18 Rx hydrocodone-acetaminophen 1 tab PO Q6-8H PRN 11/16/18 11/17/18 History Allergies Allergy/AdvReac Type Severity Reaction Status Date / Time No Known Drug Allergies Allergy Verified 11/16/18 13:16 Review of Systems Review of Systems All systems reviewed & are unremarkable except as noted in HPI and below Exam Vital Signs (past 8 hours): - 11/20/18 09:59 11/20/18 10:14 11/20/18 10:25 Temperature 98.4 F 98.3 F Pulse Rate 65 75 72 Respiratory Rate 11 L 11 L 14 Blood Pressure 117/65 120/76 140/86 Pulse Oximetry 96 97 97 11/20/18 10:55 11/20/18 11:25 11/20/18 12:30 Temperature 97.9 F 98.2 F Pulse Rate 85 68 74 Respiratory Rate 13 14 14 Blood Pressure 151/85 H 109/64 127/74 Pulse Oximetry 98 98 99 11/20/18 13:30 11/20/18 15:00 11/20/18 15:17 Temperature 98.1 F 97.9 F Pulse Rate 77 68 Respiratory Rate 14 18 Blood Pressure 120/81 124/72 Pulse Oximetry 98 97 99 Oxygen Delivery Method Room Air Oxygen Flow Rate 0 Narrative Exam Narrative: On physical exam, alert and oriented x3. Patient with some discomfort. Patient has positive dorsiflexion plantar flexion of the toes and ankle. Palpable pedal pulses. No sign of any weakness and extensor hallucis longus. 5/5 strength in dorsiflexion and plantar flexion. Some pain and discomfort with stress testing of the lower legs but no sign of any obvious weakness. Objective Imaging MRI - lumbar: My impression: Patient had an MRI of the lumbar spine which showed disc bulge at L4-L5. Mainly causing some pressure to the left-sided portion of the canal. Labs Result Diagrams: 11/19/18 05:15 11/20/18 05:20 Labs: Laboratory Results - last 24 hr 11/20/18 05:20 Sodium 139 Potassium 4.1 Chloride 101 Carbon Dioxide 30 BUN 9 Creatinine 0.70 Estimated GFR > 60.0 BUN/Creatinine Ratio 12.9 Glucose 109 H Calcium 8.8 Total Creatine Kinase 111 D Assessment & Plan Assessment & Plan narrative: Patient with a chronic history of lower back pain exacerbated by his recent inpatient hospital stay. Would recommend patient follow up after discharge to be seen by 1 of our portable grinding machine operator. Physical therapy while he is in house will be beneficial as well.
--- NOTE | 2018-11-20 18:00 | P.CONS_ITS ---
History of Present Illness Date Patient Seen: 11/20/18 Time Patient Seen: 17:53 Chief complaint: Vomiting blood Reason for consult: Low back pain Requesting provider: Brant Song Narrative: 33-year-old gentleman admitted for gastritis and alcohol related medical issues complaining of low back pain. Patient gives a long history of pain into the lower back. Had x-rays few months ago. Patient states that due to being supine for the last few days as seem to really aggravate his lower back. Complaining of pain and muscle spasms. Denies any numbness or weakness in the legs. Has pain when trying to have a bowel movement but denies any bowel or bladder dysfunction. The pain seems to be more due to spasms. Has yet to be up with physical therapy. [facility] Medical History Chronic back pain (Chronic) Alcohol abuse (Resolved) Traumatic brain injury (Chronic ~04/2011) Anxiety (Resolved) Sternum fx (Resolved) Surgical History Anesthesia (Resolved) History of brain surgery (Resolved) Family History Father Cancer Diabetes mellitus History of heart disease Hypertension Hyperlipidemia Stroke Grandfather Cancer Diabetes mellitus History of heart disease Hypertension Stroke Grandmother Diabetes mellitus History of heart disease Hypertension Social History marital status: unmarried,single number of children: 2 household members: spouse and children lives independently: Yes occupational status: employed Smoking Status: Never smoker alcohol intake: former substance use type: does not use Family History Father Cancer Diabetes mellitus History of heart disease Hypertension Hyperlipidemia Stroke Grandfather Cancer Diabetes mellitus History of heart disease Hypertension Stroke Grandmother Diabetes mellitus History of heart disease Hypertension Social History marital status: unmarried,single number of children: 2 household members: spouse and children lives independently: Yes occupational status: employed Smoking Status: Never smoker alcohol intake: former substance use type: does not use Meds Home Medications Medication Instructions Recorded Confirmed Type buspirone 7.5 mg tablet 7.5 mg PO DAILY PRN tab 10/09/18 11/16/18 History meloxicam 15 mg tablet 15 mg PO DAILY #30 tab 10/24/18 11/16/18 Rx hydrocodone-acetaminophen 1 tab PO Q6-8H PRN 11/16/18 11/17/18 History Allergies Allergy/AdvReac Type Severity Reaction Status Date / Time No Known Drug Allergies Allergy Verified 11/16/18 13:16 Review of Systems Review of Systems All systems reviewed & are unremarkable except as noted in HPI and below Exam Vital Signs (past 8 hours): - 11/20/18 09:59 11/20/18 10:14 11/20/18 10:25 Temperature 98.4 F 98.3 F Pulse Rate 65 75 72 Respiratory Rate 11 L 11 L 14 Blood Pressure 117/65 120/76 140/86 Pulse Oximetry 96 97 97 11/20/18 10:55 11/20/18 11:25 11/20/18 12:30 Temperature 97.9 F 98.2 F Pulse Rate 85 68 74 Respiratory Rate 13 14 14 Blood Pressure 151/85 H 109/64 127/74 Pulse Oximetry 98 98 99 11/20/18 13:30 11/20/18 15:00 11/20/18 15:17 Temperature 98.1 F 97.9 F Pulse Rate 77 68 Respiratory Rate 14 18 Blood Pressure 120/81 124/72 Pulse Oximetry 98 97 99 Oxygen Delivery Method Room Air Oxygen Flow Rate 0 Narrative Exam Narrative: On physical exam, alert and oriented x3. Patient with some dis comfort. Patient has positive dorsiflexion plantar flexion of the toes and ankle. Palpable pedal pulses. No sign of any weakness and extensor hallucis longus. 5/5 strength in dorsiflexion and plantar flexion. Some pain and discomfort with stress testing of the lower legs but no sign of any obvious weakness. Objective Imaging MRI - lumbar: My impression: Patient had an MRI of the lumbar spine which showed disc bulge at L4-L5. Mainly causing some pressure to the left-sided portion of the canal. Labs Result Diagrams: 11/19/18 05:15 11/20/18 05:20 Labs: Laboratory Results - last 24 hr 11/20/18 05:20 Sodium 139 Potassium 4.1 Chloride 101 Carbon Dioxide 30 BUN 9 Creatinine 0.70 Estimated GFR > 60.0 BUN/Creatinine Ratio 12.9 Glucose 109 H Calcium 8.8 Total Creatine Kinase 111 D Assessment & Plan Assessment & Plan narrative: Patient with a chronic history of lower back pain exacerbated by his recent inpatient hospital stay. Would recommend patient follow up after discharge to be seen by 1 of our residential electrician. Physical therapy while he is in house will be beneficial as well.
[2018-11-20] MEDS: ACETAMINOPHEN 325 MG TABLET 650 MG PO (18:03)
--- NOTE | 2018-11-20 18:50 | PC.NURSE ---
Pt rating pain 10/10, asymptomatic. Have contacted MD for additional medication, change of medication x 2, given ice pack and suggested repositioning. Waiting additional orders.
[2018-11-21] MEDS: OXYCODONE IR 5 MG TABLET 10 MG PO ×4 (00:38→13:35)
--- NOTE | 2018-11-21 00:50 | PC.NURSE ---
Addendum entered by Ericka Feldman R.N. 11/21/18 06:18: Has been asleep since receiving Ativan earlier. Wanting to know why he wasn't wakened for pain med at 0430 so explained that pain medication is as needed and is not given unless patient requests. Patient states he put call light on at 0430 but patient has been asleep and call light had not been on during that time frame. Medicated with Oxycodone for 9/10 back pain. Addendum entered by Ericka Feldman R.N. 11/21/18 02:19: States he slept after receiving last pain med. Now requests Ativan for sleep/anxiety; medicated as requested. Original Note: Patient is alert and oriented but expresses feeling of anxiety which he defines as pain in back, abdomen and head. Has chronic headaches of 4/10 severity but states currently is 8/10. Breath sounds CTA with RA sat of 97%. HRR. Denies nausea at present time. Still complains of burning pain in abdomen with 8/10 severity. Abdomen is soft and has + BT but expresses tenderness with palpation. Is able to move self in bed but does complain of 9.8/10 pain in lower back. Medicated for all pain with Oxycodone and ice packs provided. CIWA score is 3 due to headache and anxiousness but willing to wait to see if Oxycodone will be effective before additionally taking the Ativan. Not out of bed at this time so gait not assessed but reports he feels weak in lower extremities. Refusing to wear SCD's at night as they keep me awake; reinstructed in purpose but still declines so reminded to ankle wave. Fall risk score is high and bed alarm is activated.
[2018-11-21] MEDS: LORazepam 0.5 MG TABLET PO (02:17)
[2018-11-21 06:00] VITALS: BP 112/62; PULSE 61; RESP 19; TEMP 36.8; O2SAT 97
[2018-11-21 07:48] VITALS: BP 128/70; PULSE 74; RESP 15; TEMP 36.7; O2SAT 98
[2018-11-21] MEDS: LORazepam 1 MG TABLET PO (07:56)
--- NOTE | 2018-11-21 08:25 | CM.DPC ---
DCP/continued: Reviewed chart. Per RN, patient requesting DIRECTOR OF MARKETING [employer]MANCE ADS see him for d/c planning needs. Met with patient explained CM/SW role. Patient reports that he hopes to go to SNF for short amount of time when medically stable. Discussed with patient that last therapy note does not recommend SNF. Patient requesting that he has not seen therapy for a few days. First SNF choice is [facility]. Placed call to Ángela at [facility] and she reports that they will review. Patient's primary payor is [employer] which she reports is [employer]. Ángela does report that they do have contract and that they obtain authorization. Left vm on [facility]era for therapy re: evaluation today. September reviewing from [facility]. Patient aware that if he does not qualify for SNF he will need to discharge home. P: Pending [facility]
[2018-11-21] MEDS: THIAMINE 100 MG TABLET PO (09:46)
[2018-11-21] MEDS: MULTIVITAMIN 1 TABLET 1 TAB PO (09:46)
[2018-11-21] MEDS: FOLIC ACID 1 MG TABLET PO (09:46)
--- NOTE | 2018-11-21 10:41 | PC.NURSE ---
Pt is consistently asking for pain medication and ativan after he has been told numerous times exactly when they are due. He just walked with PT and did well with walker. Pt is most likely going to discharge home today. He would like to go to a SNF for rehab but He is doing well with getting his sox and shoes on and does not want to follow proper precautions for his back, he did not log roll. Back to room now and resting.
--- NOTE | 2018-11-21 10:50 | PT.IPTN ---
Current Diagnoses Dehydration (11/16/18) Alcohol use, unspecified with intoxication, unspecified (11/16/18) Anxiety disorder, unspecified (11/16/18) Other chronic pain (11/16/18) Gastrointestinal hemorrhage, unspecified (11/16/18) Dorsalgia, unspecified (11/16/18) Unspecified abdominal pain (11/16/18) Toxic effect of unspecified alcohol, accidental (unintentional), initial encounter (11/16/18) Surgery Performed Operation Date: 11/20/18 11:45 Actual Procedures p Esophagogastroduodenoscopy - Ej Magana MD Physical Therapy Treatment Note M2 PT-IP Current Condition Start: 11/19/18 14:44 Freq: NEEDED Status: Active Protocol: Document 11/19/18 14:20 DCW (Rec: 11/19/18 15:00 DCW [id number]) Physical Therapy Current Condition Current Condition Evaluation Date 11/19/18 Treatment Diagnosis weakness, back pain Onset Date 11/16/18 Weight Bearing Status Weight Bearing Status Full Weight Bearing M3 PT-IP Subjective Start: 11/19/18 14:44 Freq: NEEDED Status: Active Protocol: Document 11/21/18 10:20 CLB (Rec: 11/21/18 13:17 CLB [id number]) Subjective Physical Therapy Visit Type Type Treatment Note Visit Start Time 10:20 Visit Stop Time 10:50 Total Visit Minutes 30 Notes Pt stated he has FWW at home. Number of UNIX ANALYST Visits 1 Physical Therapy Visit Comments Patient Comments Pt states he would like to go to SNF rehab for around the clock therapy. Therapy Pain Assessment Pain When Pain Assessed At Rest Pain Present Pain Present Pain Reported Location Back Intensity 9 Scale Used Numeric (1 - 10) Pain Management Techniques Modification of Treatment Re-positioning Timing of Activity with Medications M4 PT-IP Mobility and Gait Start: 11/19/18 14:44 Freq: NEEDED Status: Active Protocol: Document 11/21/18 10:20 CLB (Rec: 11/21/18 13:17 CLB [id number]) PT-Bed Mobility Assessment Supine to Sit Supine to Sit Independent Sit to Supine Sit to Supine Independent Scooting Scooting to Edge of Bed Independent PT-Transfer Assessment Sit to and From Stand Sit to and from Stand Standby Assistance Equipment Transfer Assistive Device Front Wheeled Walker Orthotic/Prosthetic Devices or Brace: No Transfers Transfer Destination Bed Chair Transfer Technique ambulated Transfer Ability Level of Assist Standby Assistance Comments Mobility Comments Pt refused education on log rolling stating he just wanted to get up. Pt also refused gait belt then after using the bathroom agreed to put it on. Pt was able to pam his own socks easily on EOB bringing foot up to knee. Gait Assessment Gait Gait Assistance Required: Standby Assistance Distance (Feet) 700 Able to Maintain Weight Bearing Status Yes During Gait Assistive Devices Assistive Device Gait Belt Front Wheeled Walker Orthotic/Prosthetic Devices or Brace: Yes Gait Deviations General Gait Pattern Decreased Stride Length Decreased Feet Clearance Flexed Trunk Narrow Based Gait Factors Limiting Gait Function Factors Limiting Gait Function Decreased Strength Pain Comments Gait Comments Pt refused the use of the WC to go to the therapy stairs. Pt ambulated with FWW/SBA. Pt stated he had increase in pain as we were nearing his room at end of tx. Stair Climbing Assessment Evaluation Level of Assist On Stairs Standby Assistance 1 Person Assistance Devices Stair Climbing Assistive Devices Left Railing Right Railing Technique/Endurance Stair Climbing Direction Ascend and Descend Stair Climbing Technique Step to Step Number of Steps Climbed 3 Stair Climbing Set # Repetitions (reps) 2 Comments Stair Climbing Comments Pt able to perform stair climbing SBA with step to pattern. Pt did not c/o increase in back pain during stair training. M5 PT-IP Objective Assessments Start: 11/19/18 14:44 Freq: NEEDED Status: Active Protocol: Document 11/19/18 14:20 DCW (Rec: 11/19/18 15:00 DCW [id number]) Orientation Orientation/Cognition Level of Alertness Alert Comments A&O x3 Strength Lower Extremity Strength Assessment Bilaterally Impaired Comments Strength Comments Pt unable to tolerate full LE resistance due to increased low back pain, tested ~4-/5 M7 PT-IP Assessment and Plan Start: 11/19/18 14:44 Freq: NEEDED Status: Active Protocol: Document 11/21/18 10:20 CLB (Rec: 11/21/18 13:17 CLB [id number]) PT Summary Assessment and Plan Potential Rehabilitation Potential Excellent Status of Condition at Evaluation Stable Summary Impairments Pain Strength Gait Assessment Summary Pt c/o pain 12/26 but was able to quickly get OOB refusing to us log roll, donned socks and ambulate 700ft with stair climbing. Pt is safe with ambulation in echevar[place] and stair climbing. Pt seems safe to d/c home when medically stable. Goals Gait Goal Independent Gait Distance 200 Other Goals Ascend/descend 3 steps with step-through gait pattern and no rail Days to Meet Goals 2 Frequency of Treatment Frequency Of Treatment Once a Day Treatment Plan Physical Therapy Treatment Plan Gait Training Therapeutic Exercise Recommendations To Nursing Amount of Assist Needed Standby Assistance Discharge Recommendations PT Discharge Recommendations Home Outpatient PT
[2018-11-21 11:04] VITALS: BP 127/76; PULSE 75; RESP 16; TEMP 36.9; O2SAT 98
[2018-11-21 12:56] VITALS: TEMP 37.6
--- NOTE | 2018-11-21 13:07 | OT.IP.TRT ---
Current Diagnoses Dehydration (11/16/18) Alcohol use, unspecified with intoxication, unspecified (11/16/18) Anxiety disorder, unspecified (11/16/18) Other chronic pain (11/16/18) Gastrointestinal hemorrhage, unspecified (11/16/18) Dorsalgia, unspecified (11/16/18) Unspecified abdominal pain (11/16/18) Toxic effect of unspecified alcohol, accidental (unintentional), initial encounter (11/16/18) Surgery Performed Operation Date: 11/20/18 11:45 Actual Procedures p Esophagogastroduodenoscopy - Ej Magana MD Occupational Therapy Treatment Note M3 OT- IP Subjective and Pain Start: 11/19/18 16:05 Freq: Status: Active Protocol: Document 11/21/18 13:07 ENZO (Rec: 11/21/18 16:39 EVERT [id number]) OT- Subjective Occupational Therapy Visit Type Type Treatment Note Visit Start Time 12:33 Visit Stop Time 13:07 Total Visit Minutes 34 Occupational Therapy Visit Comments Patient Comments I would like to take a shower before I eat lunch. Patient/Caregiver Goals to go home today OT Pain Assessment Pain When Pain Assessed After Treatment Pain Present Pain Present Pain Reported Location Head Scale Used Numeric (1 - 10) Back Intensity 8 Scale Used Numeric (1 - 10) Description Aching Acute Pain Behaviors Facial Grimacing Management Techniques Distraction Re-positioning Timing of Activity with Medications M4 OT- IP ADL's Start: 11/19/18 16:05 Freq: Status: Active Protocol: Document 11/21/18 13:07 ENZO (Rec: 11/21/18 16:39 EVERT [id number]) OT XSH-[id number]-[id number] General Evaluation Self-Feeding Ability Independent OT ADL-Grooming General Evaluation Grooming Ability Independent Comments OT Grooming Comments standing at sink OT ADL-Dressing General Eval Upper Body Dressing Ability Independent Lower Body Dressing Ability Independent Assistive Devices Dressing Assistive Devices Metal Riveting Machine Operator Comments OT Dressing Comments after education re: body mechanics for lower body dressing, senior technical support engineer provided OT ADL-Toileting General Evaluation Toileting Ability Independent OT ADL-Bathing Bathing Type Bathing Type Shower General Evaluation Bathing Ability Independent Devices Bathing Equipment Long Handled Sponge or [place] Comments OT Bathing Comments after education re: body mechanics, long bath sponge provided M5 OT- IP IADL's Start: 11/19/18 16:05 Freq: Status: Active Protocol: Document 11/21/18 13:07 PJM (Rec: 11/21/18 16:39 [facility] [id number]) OT-Instrumental Activities of Daily Living Deficits IADL Deficits Identified Deficits Home Safety Awareness Awareness of Need for Assistance at Home Good Awareness Ability to Problem Solve Emergency Able to Problem Solve Situations Medication Management Medication Management No Deficits Identified Money Management Money Management No Deficits Identified Meal Preparation Meal Preparation Caregiver Provides Assist Meal Preparation Comments to assist until pt able Switchboard Installer Switchboard Installer Caregiver Provides Assist Switchboard Installer Comments to assist until pt able Driving Driving Caregiver Provides Assist Driving Comments to assist until pt able M6 OT- IP Functional Cognition Start: 11/19/18 16:05 Freq: Status: Active Protocol: Document 11/21/18 13:07 PJChadwick (Rec: 11/21/18 16:39 [facility] [id number]) Cognitive Factors Limiting Selfcare Function Cognitive Ability Level of Alertness Alert Patient Orientation Name Age Birthday Month Date Year Day of Week Place Situation Attention Span Ability Capable of Focused Attention Capable of Sustained Attention Ability to Follow Commands Able to Follow Multi-Step Commands Memory Description No Deficits Noted Safety Awareness Decreased Ability to Apply Precautions Cognitive Comments Cognitive Assessment Comments Pt needs occasional cues to avoid bending and twisting. M7 OT- IP Mobility and Balance Start: 11/19/18 16:05 Freq: Status: Active Protocol: Document 11/21/18 13:07 PJM (Rec: 11/21/18 16:39 [facility] [id number]) OT- Bed Mobility Assessment Rolling Type of Rolling Log Rolling Roll to Left Level of Assistance Independent Supine to Sit Supine to Sit Assist Independent Scooting Scooting to Edge of Bed Independent OT-Transfer Assessment Sit to and From Stand Sit to and from Stand Independent Transfers Transfer Ability Independent Technique Transfer Destination Chair Shower Stall Toilet Transfer Technique Stand Step Pivot Devices Transfer Assistive Devices None Comments Mobility Comments pt declines to use any device for walking to bathroom OT- Gait Assessment Gait Gait Assistance Required: Standby Assistance Distance (Feet) 20 Assistive Devices Assistive Device None Comments Gait Ability Comments moves slowly and carefully, tends to furniture walk OT- Balance Assessment Sitting Balance and Reactions Static Sitting Balance Ability Good Dynamic Sitting Balance Ability Good Standing Balance and Reactions Static Standing Balance Ability Good Dynamic Standing Balance Ability Good M9 OT- IP Assessment and Plan Start: 11/19/18 16:05 Freq: Status: Active Protocol: Document 11/21/18 13:07 PJM (Rec: 11/21/18 16:39 PJM [id number]) OT Summary Assessment and Plan Potential Rehabilitation Potential Good Summary OT Impairments Pain Progress Towards Goals Goals Met Assessment Summary Provided further education regarding body mechanics, adapted ADL techniques, optimal chair selection posture, lifting restriction with emphasis on lumbar spine precautions due to new diagnosis of ruptured L4-5 disc. All OT goals achieved for this admission. Pt plans to d/c home today with assist from supportive . Frequency of Treatment Frequency Of Treatment Discharge Discharge Recommendations OT Discharge Recommendations Home with Assistance
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
--- NOTE | 2018-11-21 15:26 | CM.DPC ---
DCP/continued: Reviewed verbal referral this AM requesting assistance with d/c planning. Per notes and staff patient requesting to go to SNF. Patient seen by both PT and OT this AM. Both do not recommend SNF. Both report patient okay to d/c home. Long discussion with patient re: why he wants to go to SNF. Patient reports that he worries about being a burden to his spouse/significant other and children in the home. Patient with h/o alcohol abuse. Patient had been sober but apparently recently relapsed which led to hospitalization. Patient denies needing any community resources. Patient works for [employer] and reports that he has several resources at his fingertips. Patient provided CLERK MANAGER with permission to speak with Cheo JON/Lashon Tran. Spoke with Lashon re: the above. She plans to call patient in the room and ask him about setting up outpatient physical therapy and mental health. Consent signed by patient for CLERK MANAGER to discuss with Iveth. In addition, patient requesting CLERK MANAGER call his spouse/Apolonia re: safe d/c plan. Placed call to Apolonia and she reports that she has concerns about patient coming home with narcotics. Apolonia reports that she lives a clean and sober lifestyle and does not want to have to worry about patient abusing prescribed drugs or alcohol. Apolonia in agreement for patient to return to small quantity of narcotics but would like to speak with Dr. Song. Placed call to Dr. Song and he called Apolonia. Dr. Song discharged patient and prescribed small amount of narcotics until patient can see his provider as outpatient. In addition, other forms of treatment offered by [facility] in place of medications. Also non-narcotic medications also an option. P: Home today. DONTRELL [facility]
--- NOTE | 2018-11-21 18:47 | PC.NURSE ---
Pt discharged via wheelchair to hospital outpatient pharmacy lobby to meet with his for ride home in private vehicle. Pt was A and O x 4, VSS. Discharge paperwork was reviewed and patient stated he understood his follow up directions, what to do if he develops signs and symptoms of a change in condition and what medications to continue and start.
== END 2018-11-21 15:10 | disposition home or self-care (01) | DRG 897 ==
LOC: ED 15:40 → AC 17:01
PROVIDERS: Surgery; Admitting Provider Family Medicine; Emergency Provider Emergency Medicine; PCP Family Medicine; Visit Provider Family Medicine
PROC: 0DJ08ZZ Inspection of Upper Intestinal Tract, Via Natural or Artificial Opening Endoscopic (ICD-10-PCS; CPT 43235; principal; 2018-11-20 11:45)
DX: F10.232 Alcohol dependence with withdrawal with perceptual disturbance (principal); K92.0 Hematemesis; M62.82 Rhabdomyolysis; R10.9 Unspecified abdominal pain; Y90.8 Blood alcohol level of 240 mg/100 ml or more; E86.0 Dehydration; Z87.820 Personal history of traumatic brain injury; M51.36 Other intervertebral disc degeneration, lumbar region; F41.9 Anxiety disorder, unspecified; M54.5 Low back pain
CPT/HCPCS: 36415; 36591; 43235; 70450; 70551; 72148; 74177; 80048; 80053; 80305; 80320; 81001; 82150; 82550; 82553; 83605; 83690; 83735; 84484; 85025; 85027; 85610; 85730; 86850; 86900; 86901; 93005; 96365; 96366; 96375; 96376; 97116; 97161; 97165; 97535; 99152; 99222; 99232; 99233; 99238; 99285; C9113; J1170; J2060; J2250; J2405; J3010; Q9967

== ENCOUNTER 2019-02-27 19:34 | Emergency (ER) | payer OTHER, SELFPAY ==
[2019-02-27 20:02] VITALS: BP 137/84; PULSE 112; RESP 20; TEMP 36.6; O2SAT 98
--- NOTE | 2019-02-27 20:05 | DI.RAD.S_ITS ---
PROCEDURE: XR CHEST 2V INDICATIONS: thinks pnemonia,cough TECHNIQUE: 2 views of the chest were acquired. COMPARISON: [facility], CR, XR CHEST 2 VIEWS, 02/24/2019, 10:50. FINDINGS: Surgical changes and devices: None. Lungs and pleura: Lungs are clear. No pleural effusions or pneumothorax. Mediastinum: Mediastinal contours are normal. Heart size is normal. Bones and chest wall: No suspicious bony abnormalities. Soft tissues appear unremarkable. IMPRESSION: No acute cardiopulmonary disease process. Dictated by: Mary Ann Currie MD, PhD on 02/27/2019 at 20:40 Approved by: Mary Ann Currie MD, PhD on 02/27/2019 at 20:41
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
--- NOTE | 2019-02-27 23:03 | PC.NURSE ---
Patient c/o chest pain. Requested EKG and evaluation by respiratory therapy. Patient declined EKG. States he wants to leave. Patient then laid down on stretcher. Currently resting with eyes closed.
--- NOTE | 2019-02-28 04:25 | ED.URI ---
HPI - URI/Sore Throat General Chief Complaint: Upper Respiratory Symptoms Stated Complaint: LUNG ISSUES Source: patient Mode of arrival: Ambulatory Limitations: no limitations Related Data Previous Rx's Medication Instructions Recorded buspirone 7.5 mg PO BID PRN #60 tab 11/21/18 oxycodone See Rx Instructions .ROUTE 11/21/18 .COMPLEX PRN #40 tab Allergies Allergy/AdvReac Type Severity Reaction Status Date / Time No Known Drug Allergies Allergy Verified 11/16/18 13:16 Patient History Social History marital status: unmarried,single number of children: 2 household members: spouse and children lives independently: Yes occupational status: employed Smoking Status: Never smoker alcohol intake: former substance use type: does not use alcohol intake frequency: 0-2 drinks per day Substance Use Type: marijuana Exam Initial Vital Signs Initial Vital Signs: Vital Signs Temperature 97.9 F 02/27/19 20:02 Pulse Rate 112 H 02/27/19 20:02 Respiratory Rate 20 02/27/19 20:02 Blood Pressure 137/84 02/27/19 20:02 Pulse Oximetry 98 02/27/19 20:02 Course Orders Ordered: ED Orders 02/27/19 20:05 XR chest 2V Stat Discharge Plan Departure Patient Disposition: Left Without Being Seen Clinical Impression: Patient left before evaluation by physician Discharge Date/Time: 02/27/19 23:30
== END 2019-02-27 23:30 | disposition left against medical advice (07) ==
PROVIDERS: Emergency Provider Emergency Medicine; Family Provider Family Medicine; PCP Family Medicine
DX: R05 Cough (principal)
CPT/HCPCS: 71046; 99282

== ENCOUNTER 2019-04-20 10:08 | Emergency (ER) | payer OTHER, SELFPAY ==
[2019-04-20 10:16] VITALS: BP 129/85; PULSE 99; RESP 24; TEMP 36.5; O2SAT 98
--- NOTE | 2019-04-20 10:34 | PC.NURSE ---
Pt calm and cooperative. Tearfully asking for Dr. Wilcox. Called Dr. Adam office to get additional information as pt is not very forthcoming about symptoms and needs. Pt denies active SI, states he wants help.
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
[2019-04-20 12:24] LABS: Ur Creatinine Normal (Normal); Ur Specific Gravity Normal (Normal); Urine Cocaine Negative (Negative); Urine Tetrahydrocannabinol Negative (Negative); Urine pH Normal (Normal)
[2019-04-20 12:25] LABS: UR Morphine/Opiate cutoff 300 Negative (Negative); Urine Amphetamines Negative (Negative); Urine Barbiturates Negative (Negative); Urine Benzodiazepines Negative (Negative); Urine MDMA Negative (Negative); Urine Methadone Negative (Negative); Urine Methamphetamines Positive (Negative); Urine Oxycodone Negative (Negative); Urine Phencyclidine Negative (Negative); Urine Tricyclic Antidepressant Negative (Negative)
[2019-04-20] MEDS: OLANZapine ODT 10 MG TAB PO (13:01)
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
[2019-04-20 13:35] LABS: Add Manual Diff / Slide Review NO; Basophils Absolute Auto 0 /uL (0-100); Basophils Percent Auto 0.4 % (0-2); Eosinophils Absolute Auto 0 /uL (0-450); Eosinophils Percent Auto 0.1 % (2-4); Hematocrit 46.3 % (41-53); Hemoglobin 16.5 g/dL (13.5-17.5); Lymphocytes Absolute Auto 1600 /uL (1100-4500); Lymphocytes Percent Auto 26.7 % (25-40); Mean Corpuscular HGB Conc 35.7 % (30-36); Mean Corpuscular Hemoglobin 30.3 PG (26-34); Monocytes Absolute Auto 300 /uL (0-900); Monocytes Percent Auto 5.7 % (3-14); Neutrophils Absolute Auto 4100 /uL (1500-7000); Neutrophils Percent Auto 67.1 % (50-75); Platelet Count 222 X10^3/uL (150-400); Red Blood Cell Count 5.44 X10^6/uL (4.5-5.9); Red Cell Distribution Width 12.4 % (11.6-14.8); White Blood Cell Count 6.1 X10^3/uL (4.5-11.0)
[2019-04-20 13:53] LABS: Acetaminophen < 10 ug/mL (10-30); Alanine Aminotransferase 69 IU/L (<50); Albumin 4.9 g/dL (3.5-5.0); Albumin Globulin Ratio 1.6 (1.0-2.8); Alkaline Phosphatase 88 U/L (38-126); Aspartate Aminotransferase 62 IU/L (17-59); BUN Creatinine Ratio 6.3 (6-22); Bilirubin Total 0.8 mg/dL (0.2-1.3); Blood Urea Nitrogen 5 mg/dL (9-20); Calcium 8.8 mg/dL (8.4-10.2); Carbon Dioxide 28 mmol/L (22-32); Chloride 110 mmol/L (98-107); Estimated Glomerular Filt Rate > 60.0 mL/min (>60); Ethanol (ETOH) 284 mg/dL; Globulin 3.1 g/dL (1.7-4.1); Glucose 127 mg/dL (70-100); HEMOLYSIS < 15 (0-50); Potassium 3.6 mmol/L (3.4-5.1); Salicylate < 1.0 mg/dL (<20); Sodium 149 mmol/L (137-145)
--- NOTE | 2019-04-20 14:10 | PC.NURSE ---
Asked that we share medical report w/ girlfriend Piper. They have two children at home. Piper is concerned for their safety. She is taking steps to ensure their safety. Discussed w/ DATABASE ENGINEER.
[2019-04-20 14:32] LABS: Thyroid Stimulating Hormone 0.62 uIU/mL (0.47-4.68)
[2019-04-20 16:57] VITALS: BP 130/82; PULSE 103; RESP 14; O2SAT 98
[2019-04-20] MEDS: ONDANSETRON 4 MG ODT PO (18:40)
[2019-04-20] MEDS: KETOROLAC 10 MG TABLET PO (18:40)
[2019-04-20 19:14] VITALS: BP 130/92; PULSE 130; RESP 14; O2SAT 99
--- NOTE | 2019-04-20 19:38 | CM.SWNOTE ---
Discharge Planning/Care Management ED Mental Health Evaluation Status Start: 04/20/19 10:25 Freq: Status: Discharge Protocol: Document 04/20/19 12:34 MME (Rec: 04/20/19 12:34 MME [id number]) Mental Health Evaluation Status Mental Health Evaluation Status Pending Date 04/20/19 Approximate Time of Arrival 12:34 [facility] Name [facility] Psychiatric Symptoms Assessment Start: 04/20/19 10:25 Freq: Status: Discharge Protocol: Document 04/20/19 10:31 KLS (Rec: 04/20/19 10:33 [facility] [id number]) Psychiatric Symptoms Assessment Symptoms/Complaint Feels Depressed Onset days Duration Getting Worse History Of Same Yes Context Unknown Improves With Nothing Worsens With Nothing Associated Psychiatric Symptoms Depression,Racing Thoughts Associated Symptoms Denies Other Symptoms Details of Plan States he does not want to hurt himself, I just want help. Denies current HI. Appears drowsy, denies drug / etoh intake. Level of Consciousness Drowsy Patient Orientation Name,Age,Birthday,Month,Date, Year,Day of Week,Place, Situation Patient Behavior/Mood Flat,Guarded Ability to Follow Directions Excellent Patient Cognition Impaired No Affect Description Depressed Patient Appearance Well Groomed Hallucination Type None Delusion Description Present Thought Process: Disorganized Depressive Symptoms Back Pain,Feelings of Worthlessness,Increased Fatigue,Loss of Energy,Low Self Esteem Feelings of Hopelessness Yes Suicidal Ideation Vague Suicide Plan No Plan,Clear Nausea/Vomiting None Document 04/20/19 14:07 KLS (Rec: 04/20/19 14:10 [facility] [id number]) Psychiatric Symptoms Assessment Symptoms/Complaint Suicidal Ideation Duration Getting Worse History Of Same Yes Associated Psychiatric Symptoms Auditory Hallucinations, Suicidal Ideation Associated Symptoms Nausea If Self Harm Admits Thoughts of Self Harm Details of Plan Pt states he wants to hang himself. Level of Consciousness Alert,Awake Patient Orientation Name,Age,Birthday,Year Patient Behavior/Mood Confused Ability to Follow Directions Fair Patient Cognition Impaired Yes: Unsure of where he is. Affect Description Anxious,Calm Patient Appearance Unkempt Hallucination Type Auditory Delusion Description Paranoid Ideation,Present Feelings of Hopelessness Yes Suicidal Ideation Constant Suicide Plan Clear,Specific Homicidal Ideation None Nausea/Vomiting Nauseated Document 04/20/19 17:19 KLS (Rec: 04/20/19 17:19 [facility] [id number]) Psychiatric Symptoms Assessment Details of Plan Sleeping, unwilling to answer questions at this time. Document 04/20/19 19:18 [facility] (Rec: 04/20/19 19:20 [facility] [id number]) Psychiatric Symptoms Assessment Symptoms/Complaint states he feels well. Details of Plan Now a/o x 3. Denies suicidal / homicidal thoughts. Remembers saying i want to hang myself ' but states it was the drugs . Level of Consciousness Alert,Appropriate,Awake Ability to Follow Directions Excellent Patient Cognition Impaired No Affect Description Calm Hallucination Type None Major Depressive Episode No Feelings of Hopelessness No Suicidal Ideation None Suicide Plan No Plan Homicidal Ideation None Nausea/Vomiting None MANUFACTURING SHIFT SUPERVISOR - Concrete Form Setter Assessment Start: 04/20/19 13:01 Freq: Status: Discharge Protocol: Document 04/20/19 19:00 DPL (Rec: 04/20/19 19:38 DPL [id number]) MANUFACTURING SHIFT SUPERVISOR/Concrete Form Setter Assessment Start date 04/20/19 Visit Start Time 12:15 End date 04/20/19 Visit End Time 07:30 Total time Care Management spent on 465 patient visit-in minutes Presenting Problem Pt presents to the ED expressing wanting help, demonstrates acute psychosis with delusions, paranoia, responding to internal stimuli . He states that my head's not right, someone's pounding loudly in my mind, it won't stop. Pt tests positive for methamphetamine and had a blood alchol level of 327 upon admission. He complains of head pain and nausea. Precipitating Event(s) Pt was seen yesterday evening at [facility] ER for the same reasons. Pt reportedly became agitated and paranoid after trying to help some people and thought that they were going to brittney him, he bolted into a restaurant and police were called. He then got back into his vehicle and tried to drive away when they arrived. He was positive for meth and presented as highly intoxicated. He continued to express that he didn't feel right in the head, and shared that he has a concealed carry license and that he had a gun in his car. Pt also shared that he has a hx of TBI. He initially denied suicidal ideation, however he later stated that he wanted to kill all cable tool operator, and that he wanted to drink himself to . He stated to the ER charge nurse that he wanted to hang himself, and was transferred to the secure room and monitored for involuntary suicidality. Current Behavioral Health Provider(s) None. Include Facility, Provider, Ph. # Psych. Hx Mental Health and Chemical Pt states that he was just Dependency discharged from a month long inpt MH treatment approximately 5-days ago, and that it didn't help. His thought process was clearly disorganized at the time of ED presentation. He has a known hx of alcohol, heroin, opioid use. He denied wanting assistance with detox treatment or inpt MH placement . Family Hx of Behavioral Abuse [place] [facility] [facility] ([place]) School/Work Pt is employed by the [employer]. Support System(s) Pt's girlfriend is primary support person. He resides with her and their 2-children, ages 8-months and 4-years old . Pt's girlfriend expressed to the ED charge nurse by phone that she was concerned about her and her children's safety should pt return home in this state. She had communicated the same thing to [facility] ED yesterday evening, per their documentation. Due to the high risk nature of his meth/ alcohol/psychosis, second consecutive day of use/ED interventions, and the concealed carry firearm he carries in his car, this MANUFACTURING SHIFT SUPERVISOR completed a CPS report expressing safety concerns of ED staff and pt's girlfriend. CPS report# [id number]. Legal Matters - Outstanding Issues [place] Orientation (Person/Place/Time) Pt was not oriented to time or place when he initially arrived in the ED. He was given a dose of Zyprexa due to his psychotic symptoms, and by the time he left he had cleared cognitively and was oriented X3 and congruent in thought process. Affect Initially: guarded, agitated, confused. At time of D/C: calm, affect appropriate to situation. Thought Content - Specify/Describe Pt demonstated paranoia, Obsessions, Delusions, Hallucinations delusions and auditory hallucinations at time of ED visit. He felt that cable tool operator were after him, heard lound banging sounds in his brain and stated that so much was happening in his head that he couldn't make any sense of any of it. Thought Processes (Npsnyxf-Epoxhlhz-Bcjx Pt was tearful and claimed Lvhmdyhn-Qrzvondf-Osynfawuqd- that no one understood him Wtqreqofuogikv-Oachzxu-Lhtetmophffn- prior to taking the Zyprexa. Thought Blocking) He became much more coherent and stable in mentation after sleeping for a few hours following the Zyprexa dose. Speech (Mzxvpg-Jhss-Mhgxmtj-Rapid-Soft- Rapid/pressured at first, Loud-Pressured) normal by the time of d/c from ED. Insight (Present-Partially Present- Impaired Impaired) Judgement (Intact-Impaired) Impaired Impulse Control (Adequate-Impaired) Impaired initially, which improved over time as he sobered up and responded to the antipsychotic medication administered to him. Memory (Pyfktytap-Aihbvy-Fruwny, Impaired Impaired-Intact) Concentration (Intact-Impaired) Impaired Attention (Intact-Impaired) Impaired Behavior (Appropriate-Inappropriate) ED staff required the presence of [place] Police officers to provide stand by assist in order for pt to agree to being placed in room 13, to remove his clothes and be placed in safe scrubs. His behavior became much more cooperative and appropriate by the time he left the ED to home. Suicidal Ideation (Plan) Yes: drink myself to hang myself Homicidal Ideation (Plan) Yes: Pt stated that he wanted to kill all cable tool operator. Intervention MANUFACTURING SHIFT SUPERVISOR assessment completed. Pt status was changed from involuntary to voluntary and allowed to d/c home with his girlfriend after several hours of stabilization in the ED. RA Plan Pt states that he will refrain from meth and alcohol use over the weekend, has a plan already in process to report to [facility] next Tuesday to pursue outpatient treatment.
--- NOTE | 2019-04-20 20:34 | ED.PSYCH ---
HPI - Psych <CHELSEA Keith - Last Filed: 04/20/19 20:39> General Chief Complaint: Psychiatric Symptoms Stated Complaint: ' my back' Time Seen by Provider: 04/20/19 11:08 Source: patient Mode of arrival: Ambulatory Limitations: no limitations History of Present Illness HPI Narrative: The patient is a 33-year-old male with history of methamphetamine use and alcohol abuse who presents with a chief complaint of ?I want help.The patient is very unclear regarding why he is here, repeatedly asking to speak with primary care provider. Records were obtained from [facility], with the patient was yesterday for it. While intoxicated with alcohol. The patient states he has suicidal thoughts, denies any plan and then states he wants to drink himself to . He denies any thoughts of hurting himself or anybody else. He does endorse some methamphetamine use. [facility] records illustrate that the patient has firearms at home. Related Data Home Medications Medication Instructions Recorded Confirmed albuterol sulfate [Proventil HFA] 2 puff INHALATION Q4H PRN 04/20/19 04/20/19 azithromycin See Rx Instructions .ROUTE .COMPLEX 04/20/19 04/20/19 buspirone 15 mg PO BID PRN 04/20/19 04/20/19 Allergies Allergy/AdvReac Type Severity Reaction Status Date / Time No Known Drug Allergies Allergy Verified 02/28/19 15:52 Review of Systems <CHELSEA Keith - Last Filed: 04/20/19 20:39> Review of Systems Narrative: GENERAL: Denies chills, fatigue, malaise, fever, sweats. HEENT: Denies sinus pain, ear pain, sore throat, difficulty swallowing, dizziness. RESPIRATORY: Denies dyspnea, cough, wheezing, hemoptysis, sputum. CARDIOVASCULAR: Denies chest pain, palpitations, orthopnea, edema, GASTROINTESTINAL: Denies nausea, vomiting, abdominal pain, diarrhea, constipation, melena. : Denies dysuria, frequency, incontinence, hematuria, urinary retention. MUSCULOSKELETAL: denies weakness, joint pain, or bony pain SKIN: Denies rash, skin lesions, or other NEUROLOGIC: See HPI PSYCHIATRIC: See HPI 12 point review of systems is negative except for those stated above Patient History <CHELSEA Keith - Last Filed: 04/20/19 20:39> Medical History Alcohol abuse (Resolved) Anxiety (Resolved) Chronic back pain (Chronic) Sternum fx (Resolved) Traumatic brain injury (Chronic ~04/2011) Surgical History Anesthesia (Resolved) History of brain surgery (Resolved) Family History Father Cancer Diabetes mellitus History of heart disease Hypertension Hyperlipidemia Stroke Grandfather Cancer Diabetes mellitus History of heart disease Hypertension Stroke Grandmother Diabetes mellitus History of heart disease Hypertension Social History marital status: unmarried,single number of children: 2 household members: spouse and children lives independently: Yes occupational status: employed Smoking Status: Never smoker alcohol intake: former substance use type: does not use Smoking Status: Never smoker alcohol intake frequency: 0-2 drinks per day Substance Use Type: marijuana Exam <NILTON Keith - Last Filed: 04/20/19 20:39> Narrative Exam Narrative: GENERAL: This is a well-nourished, well-developed patient, teary and crying HEAD: Atraumatic. Normocephalic. No temporal or scalp tenderness. EYES: Pupils equal round and reactive. Extraocular motions intact. No scleral icterus. No injection or drainage. ENT: Nose without bleeding, purulent drainage or septal hematoma. Throat without erythema, tonsillar hypertrophy or exudate. Uvula midline. Airway patent. NECK: Trachea midline. No JVD or lymphadenopathy. Supple, nontender, no meningeal signs. CARDIOVASCULAR: Regular rate and rhythm RESPIRATORY: Clear to auscultation. Breath sounds equal bilaterally. No wheezes, rales, or rhonchi. No cough. No increased respiratory effort. No accessory muscle use. GASTROINTESTINAL: Abdomen soft, non-tender, nondistended. No hepato-splenomegaly, or palpable masses. No guarding. Active bowel sounds. EXTREMITIES: No clubbing, cyanosis, or edema. No joint tenderness, effusion, or edema noted. BACK: Nontender without deformity or crepitance. No flank tenderness. NEURO: Alert, oriented to place and name states that he has suicidal thoughts, plan to drink himself to , states he has some auditory hallucinations. Pressured speech. Tangential. SKIN: No rash or erythema. Initial Vital Signs Initial Vital Signs: Vital Signs Temperature 97.7 F 04/20/19 10:16 Pulse Rate 99 H 04/20/19 10:16 Respiratory Rate 24 04/20/19 10:16 Blood Pressure 129/85 04/20/19 10:16 Pulse Oximetry 98 04/20/19 10:16 <Pavel Marte DO - Last Filed: 04/21/19 01:17> Initial Vital Signs Initial Vital Signs: Vital Signs Temperature 97.7 F 04/20/19 10:16 Pulse Rate 99 H 04/20/19 10:16 Respiratory Rate 24 04/20/19 10:16 Blood Pressure 129/85 04/20/19 10:16 Pulse Oximetry 98 04/20/19 10:16 Course <NILTON Keith - Last Filed: 04/20/19 20:39> Orders Ordered: Discontinued Medications Ketorolac Tromethamine (Toradol) 10 mg PO NOW ONE Stop: 04/20/19 13:30 Last Admin: 04/20/19 18:40 Dose: 10 mg Documented by: NANCY Olanzapine (Zyprexa Zydis) 10 mg PO NOW ONE Stop: 04/20/19 12:45 Last Admin: 04/20/19 13:01 Dose: 10 mg Documented by: MOHAN Ondansetron HCl (Zofran Odt) 4 mg PO NOW ONE Stop: 04/20/19 11:52 Last Admin: 04/20/19 18:40 Dose: 4 mg Documented by: NANCY Vital Signs Vital signs: Vital Signs - 8 hr 04/20/19 19:14 Pulse Rate 130 H Respiratory Rate 14 Blood Pressure [Left Arm] 130/92 H Pulse Oximetry 99 <Pavel Marte DO - Last Filed: 04/21/19 01:17> Orders Ordered: Discontinued Medications Ketorolac Tromethamine (Toradol) 10 mg PO NOW ONE Stop: 04/20/19 13:30 Last Admin: 04/20/19 18:40 Dose: 10 mg Documented by: NANCY Olanzapine (Zyprexa Zydis) 10 mg PO NOW ONE Stop: 04/20/19 12:45 Last Admin: 04/20/19 13:01 Dose: 10 mg Documented by: MOHAN Ondansetron HCl (Zofran Odt) 4 mg PO NOW ONE Stop: 04/20/19 11:52 Last Admin: 04/20/19 18:40 Dose: 4 mg Documented by: NANCY Vital Signs Vital signs: Vital Signs - 8 hr 04/20/19 19:14 Pulse Rate 130 H Respiratory Rate 14 Blood Pressure [Left Arm] 130/92 H Pulse Oximetry 99 MDM - Psych <SAIMA Keith-BC - Last Filed: 04/20/19 20:39> Lab Data Result diagrams: 04/20/19 13:28 04/20/19 13:28 Labs: Lab Results 04/20/19 04/20/19 04/20/19 Range/Units 12:00 13:28 13:28 WBC 6.1 (4.5-11.0) X10^3/uL RBC 5.44 (4.5-5.9) X10^6/uL Hgb 16.5 (13.5-17.5) g/dL Hct 46.3 (41-53) % MCV 85.0 (80-100) fL MCH 30.3 (26-34) PG MCHC 35.7 (30-36) % RDW 12.4 (11.6-14.8) % Plt Count 222 (150-400) X10^3/uL Neut % (Auto) 67.1 (50-75) % Lymph % (Auto) 26.7 (25-40) % [place] % (Auto) 5.7 (3-14) % Eos % (Auto) 0.1 L (2-4) % Baso % (Auto) 0.4 (0-2) % Neut # (Auto) 4100 (9118-8450) /uL Lymph # (Auto) 1600 (3241-7712) /uL [place] # (Auto) 300 (0-900) /uL Eos # (Auto) 0 (0-450) /uL Baso # (Auto) 0 (0-100) /uL Sodium 149 H (137-145) mmol/L Potassium 3.6 (3.4-5.1) mmol/L Chloride 110 H (98-107) mmol/L Carbon Dioxide 28 (22-32) mmol/L BUN 5 L (9-20) mg/dL Creatinine 0.80 (0.66-1.25) mg/dL Estimated GFR > 60.0 (>60) mL/min BUN/Creatinine Ratio 6.3 (6-22) Glucose 127 H (70-100) mg/dL Calcium 8.8 (8.4-10.2) mg/dL Total Bilirubin 0.8 (0.2-1.3) mg/dL AST 62 H (17-59) IU/L ALT 69 H (<50) IU/L Alkaline Phosphatase 88 (38-126) U/L Total Protein 8.0 (6.3-8.2) g/dL Albumin 4.9 (3.5-5.0) g/dL Globulin 3.1 (1.7-4.1) g/dL Albumin/Globulin Ratio 1.6 (1.0-2.8) TSH (0.47-4.68) uIU/mL Salicylates < 1.0 (<20) mg/dL U Opiates 300ng/mL cut Negative (Negative) Ur Oxycodone Screen Negative (Negative) Urine Methadone Screen Negative (Negative) Acetaminophen < 10 L (10-30) ug/mL Ur Barbiturates Screen Negative (Negative) U Tricyclic Antidepress Negative (Negative) Ur Phencyclidine Scrn Negative (Negative) Ur Amphetamines Screen Negative (Negative) U Methamphetamines Scrn Positive H (Negative) Ur MDMA Scrn (Ecstasy) Negative (Negative) U Benzodiazepines Scrn Negative (Negative) Urine Cocaine Screen Negative (Negative) U Marijuana (THC) Screen Negative (Negative) Ethyl Alcohol 284 H ( - 10) mg/dL 04/20/19 Range/Units 13:28 WBC (4.5-11.0) X10^3/uL RBC (4.5-5.9) X10^6/uL Hgb (13.5-17.5) g/dL Hct (41-53) % MCV (80-100) fL MCH (26-34) PG MCHC (30-36) % RDW (11.6-14.8) % Plt Count (150-400) X10^3/uL Neut % (Auto) (50-75) % Lymph % (Auto) (25-40) % [place] % (Auto) (3-14) % Eos % (Auto) (2-4) % Baso % (Auto) (0-2) % Neut # (Auto) (1043-0803) /uL Lymph # (Auto) (5775-1235) /uL Gaston # (Auto) (0-900) /uL Eos # (Auto) (0-450) /uL Baso # (Auto) (0-100) /uL Sodium (137-145) mmol/L Potassium (3.4-5.1) mmol/L Chloride (98-107) mmol/L Carbon Dioxide (22-32) mmol/L BUN (9-20) mg/dL Creatinine (0.66-1.25) mg/dL Estimated GFR (>60) mL/min BUN/Creatinine Ratio (6-22) Glucose (70-100) mg/dL Calcium (8.4-10.2) mg/dL Total Bilirubin (0.2-1.3) mg/dL AST (17-59) IU/L ALT (<50) IU/L Alkaline Phosphatase (38-126) U/L Total Protein (6.3-8.2) g/dL Albumin (3.5-5.0) g/dL Globulin (1.7-4.1) g/dL Albumin/Globulin Ratio (1.0-2.8) TSH 0.62 (0.47-4.68) uIU/mL Salicylates (<20) mg/dL U Opiates 300ng/mL cut (Negative) Ur Oxycodone Screen (Negative) Urine Methadone Screen (Negative) Acetaminophen (10-30) ug/mL Ur Barbiturates Screen (Negative) U Tricyclic Antidepress (Negative) Ur Phencyclidine Scrn (Negative) Ur Amphetamines Screen (Negative) U Methamphetamines Scrn (Negative) Ur MDMA Scrn (Ecstasy) (Negative) U Benzodiazepines Scrn (Negative) Urine Cocaine Screen (Negative) U Marijuana (THC) Screen (Negative) Ethyl Alcohol ( - 10) mg/dL Urine Dip Bedside Urine Glucose Negative Bedside Urine Bilirubin - Negative Bedside Urine Ketone - Negative Urine Specific [place] 1.010 Bedside Urine Occult Blood - Negative Bedside Urine pH 7.0 Bedside Urine Protein - Negative Bedside Urine Urobilinogen - Negative Bedside Urine Nitrite - Negative Bedside Urine Leukocytes - Negative Esterase MDM Narrative Medical decision making narrative: The patient is a 33-year-old male who presents with a chief complaint of suicidal ideations with a plan to drink himself to , responding to internal stimuli, who test positive for methamphetamines and is intoxicated with alcohol. The patient was defined with staff, refusing to follow instructions. Patient was given Zyprexa zydis as he was acutely psychotic and responded well. He was transferred to room 13, and slept for several hours. Upon wakening, he denies any suicidal thoughts or plans, states he has plans to follow-up in the clinic regarding his addiction issues. He was evaluated by [employer], who states he is safe unclear to go home. Patient was discharged with strict instructions of follow-up with primary care provider as planned. Discussed at length coming back to the ER. Patient states that he can be safe at home and no longer wants to hurt himself. Of note CPS was contacted by social work as the patient has children and his house. I am in accordance with this. Patient has no questions or concerns upon discharge and state understanding of return precautions as well as follow-up care. <Pavel Marte, DO - Last Filed: 04/21/19 01:17> Lab Data Labs: Lab Results 04/20/19 04/20/19 04/20/19 Range/Units 12:00 13:28 13:28 WBC 6.1 (4.5-11.0) X10^3/uL RBC 5.44 (4.5-5.9) X10^6/uL Hgb 16.5 (13.5-17.5) g/dL Hct 46.3 (41-53) % MCV 85.0 (80-100) fL MCH 30.3 (26-34) PG MCHC 35.7 (30-36) % RDW 12.4 (11.6-14.8) % Plt Count 222 (150-400) X10^3/uL Neut % (Auto) 67.1 (50-75) % Lymph % (Auto) 26.7 (25-40) % [place] % (Auto) 5.7 (3-14) % Eos % (Auto) 0.1 L (2-4) % Baso % (Auto) 0.4 (0-2) % Neut # (Auto) 4100 (2040-6483) /uL Lymph # (Auto) 1600 (1407-4133) /uL [place]aston # (Auto) 300 (0-900) /uL Eos # (Auto) 0 (0-450) /uL Baso # (Auto) 0 (0-100) /uL Sodium 149 H (137-145) mmol/L Potassium 3.6 (3.4-5.1) mmol/L Chloride 110 H (98-107) mmol/L Carbon Dioxide 28 (22-32) mmol/L BUN 5 L (9-20) mg/dL Creatinine 0.80 (0.66-1.25) mg/dL Estimated GFR > 60.0 (>60) mL/min BUN/Creatinine Ratio 6.3 (6-22) Glucose 127 H (70-100) mg/dL Calcium 8.8 (8.4-10.2) mg/dL Total Bilirubin 0.8 (0.2-1.3) mg/dL AST 62 H (17-59) IU/L ALT 69 H (<50) IU/L Alkaline Phosphatase 88 (38-126) U/L Total Protein 8.0 (6.3-8.2) g/dL Albumin 4.9 (3.5-5.0) g/dL Globulin 3.1 (1.7-4.1) g/dL Albumin/Globulin Ratio 1.6 (1.0-2.8) TSH (0.47-4.68) uIU/mL Salicylates < 1.0 (<20) mg/dL U Opiates 300ng/mL cut Negative (Negative) Ur Oxycodone Screen Negative (Negative) Urine Methadone Screen Negative (Negative) Acetaminophen < 10 L (10-30) ug/mL Ur Barbiturates Screen Negative (Negative) U Tricyclic Antidepress Negative (Negative) Ur Phencyclidine Scrn Negative (Negative) Ur Amphetamines Screen Negative (Negative) U Methamphetamines Scrn Positive H (Negative) Ur MDMA Scrn (Ecstasy) Negative (Negative) U Benzodiazepines Scrn Negative (Negative) Urine Cocaine Screen Negative (Negative) U Marijuana (THC) Screen Negative (Negative) Ethyl Alcohol 284 H ( - 10) mg/dL 04/20/19 Range/Units 13:28 WBC (4.5-11.0) X10^3/uL RBC (4.5-5.9) X10^6/uL Hgb (13.5-17.5) g/dL Hct (41-53) % MCV (80-100) fL MCH (26-34) PG MCHC (30-36) % RDW (11.6-14.8) % Plt Count (150-400) X10^3/uL Neut % (Auto) (50-75) % Lymph % (Auto) (25-40) % [place] % (Auto) (3-14) % Eos % (Auto) (2-4) % Baso % (Auto) (0-2) % Neut # (Auto) (7956-9913) /uL Lymph # (Auto) (7858-7612) /uL [place]aston # (Auto) (0-900) /uL Eos # (Auto) (0-450) /uL Baso # (Auto) (0-100) /uL Sodium (137-145) mmol/L Potassium (3.4-5.1) mmol/L Chloride (98-107) mmol/L Carbon Dioxide (22-32) mmol/L BUN (9-20) mg/dL Creatinine (0.66-1.25) mg/dL Estimated GFR (>60) mL/min BUN/Creatinine Ratio (6-22) Glucose (70-100) mg/dL Calcium (8.4-10.2) mg/dL Total Bilirubin (0.2-1.3) mg/dL AST (17-59) IU/L ALT (<50) IU/L Alkaline Phosphatase (38-126) U/L Total Protein (6.3-8.2) g/dL Albumin (3.5-5.0) g/dL Globulin (1.7-4.1) g/dL Albumin/Globulin Ratio (1.0-2.8) TSH 0.62 (0.47-4.68) uIU/mL Salicylates (<20) mg/dL U Opiates 300ng/mL cut (Negative) Ur Oxycodone Screen (Negative) Urine Methadone Screen (Negative) Acetaminophen (10-30) ug/mL Ur Barbiturates Screen (Negative) U Tricyclic Antidepress (Negative) Ur Phencyclidine Scrn (Negative) Ur Amphetamines Screen (Negative) U Methamphetamines Scrn (Negative) Ur MDMA Scrn (Ecstasy) (Negative) U Benzodiazepines Scrn (Negative) Urine Cocaine Screen (Negative) U Marijuana (THC) Screen (Negative) Ethyl Alcohol ( - 10) mg/dL Urine Dip Bedside Urine Glucose Negative Bedside Urine Bilirubin - Negative Bedside Urine Ketone - Negative Urine Specific [place] 1.010 Bedside Urine Occult Blood - Negative Bedside Urine pH 7.0 Bedside Urine Protein - Negative Bedside Urine Urobilinogen - Negative Bedside Urine Nitrite - Negative Bedside Urine Leukocytes - Negative Esterase Discharge Plan Departure Patient Disposition: Home Clinical Impression: Methamphetamine-induced psychotic disorder Discharge Date/Time: 04/20/19 19:21 Instructions: DI for Drug Abuse and Drug Addiction, DI for Suicidal Ideation-Adult, DI for Psychosis Activity Restrictions/Additional Instructions: Please do not use meth and alcohol. Please come back to the emergency department for any acute concerns. Please follow-up with primary care provider as well as at the detox clinic on Tuesday Prescriptions: No Action azithromycin 250 mg tablet See Rx Instructions .ROUTE .COMPLEX RF: 0 albuterol sulfate [Proventil HFA] 90 mcg/actuation Hfa Aerosol Inhaler 2 puff INHALATION Q4H PRN (Reason: Wheezing) RF: 0 buspirone 15 mg tablet 15 mg PO BID PRN (Reason: Anxiety) RF: 0 Referrals: Krissy Wilcox DO [Primary Care Provider] -
== END 2019-04-20 19:21 | disposition home or self-care (01) ==
PROVIDERS: Emergency Provider Nurse Practitioner Family; Family Provider Family Medicine; PCP Family Medicine
DX: F23 Brief psychotic disorder (principal); F15.129 Other stimulant abuse with intoxication, unspecified; F10.129 Alcohol abuse with intoxication, unspecified; R45.851 Suicidal ideations
CPT/HCPCS: 36415; 80053; 80305; 80320; 80329; 81003; 84443; 85025; 99284; G0480

== ENCOUNTER 2019-08-27 10:01 | Emergency (ER) | payer OTHER, SELFPAY ==
[2019-08-27 10:10] VITALS: BP 145/70; PULSE 110; RESP 24; TEMP 36.4; O2SAT 99
[2019-08-27] MEDS: PHENobarbital 65 MG/ML VIAL 130 MG IV (12:02)
[2019-08-27] MEDS: PANTOPRAZOLE 40 MG VIAL IV (12:02)
[2019-08-27 12:03] LABS: Add Manual Diff / Slide Review NO; Basophils Absolute Auto 0 /uL (0-100); Basophils Percent Auto 0.4 % (0-2); Eosinophils Absolute Auto 0 /uL (0-450); Hematocrit 40.8 % (41-53); Hemoglobin 14.4 g/dL (13.5-17.5); Lymphocytes Absolute Auto 600 /uL (1100-4500); Lymphocytes Percent Auto 5.1 % (25-40); Mean Corpuscular HGB Conc 35.3 % (30-36); Mean Corpuscular Hemoglobin 30.1 PG (26-34); Mean Corpuscular Volume 85.2 fL (80-100); Monocytes Absolute Auto 800 /uL (0-900); Neutrophils Absolute Auto 9600 /uL (1500-7000); Neutrophils Percent Auto 87.5 % (50-75); Platelet Count 259 X10^3/uL (150-400); Red Blood Cell Count 4.79 X10^6/uL (4.5-5.9); Red Cell Distribution Width 13.8 % (11.6-14.8)
[2019-08-27] MEDS: SODIUM CHLORIDE 0.9% 1,000 ML 1000 ML IV (12:03)
[2019-08-27] MEDS: ONDANSETRON 4 MG/2 ML INJ IV ×2 (12:03→15:19)
[2019-08-27 12:27] LABS: Alanine Aminotransferase 47 IU/L (<50); Albumin 4.4 g/dL (3.5-5.0); Albumin Globulin Ratio 1.4 (1.0-2.8); Alkaline Phosphatase 105 U/L (38-126); Aspartate Aminotransferase 67 IU/L (17-59); BUN Creatinine Ratio 8.1 (6-22); Bilirubin Total 0.7 mg/dL (0.2-1.3); Bilirubin Unconjugated 0.5 mg/dL (0.0-1.1); Blood Urea Nitrogen 5 mg/dL (9-20); Calcium 8.7 mg/dL (8.4-10.2); Carbon Dioxide 27 mmol/L (22-32); Chloride 100 mmol/L (98-107); Estimated Glomerular Filt Rate > 60.0 mL/min (>60); Ethanol (ETOH) 74 mg/dL; Globulin 3.2 g/dL (1.7-4.1); Glucose 136 mg/dL (70-100); HEMOLYSIS < 15 (0-50); Lipase 90 U/L (23-300); Magnesium 1.6 mg/dL (1.6-2.3); Potassium 3.8 mmol/L (3.4-5.1); Sodium 139 mmol/L (137-145); Total Protein 7.6 g/dL (6.3-8.2)
--- NOTE | 2019-08-27 12:51 | PC.NURSE ---
Family member Piper called to speak with pt. Pt denied wanting to talk to her at this moment
[2019-08-27 13:03] VITALS: BP 125/70; PULSE 112; RESP 17; O2SAT 100
[2019-08-27 14:24] VITALS: BP 123/71; PULSE 111; RESP 19; O2SAT 98
[2019-08-27 15:14] LABS: Appearance Urine UA CLEAR; Bilirubin Urine UA NEGATIVE (NEGATIVE); Color Urine UA YELLOW; Glucose Urine UA TRACE g/dL (Negative); Ketones Urine UA TRACE (NEGATIVE); Leukocyte Esterase Urine UA NEGATIVE (NEGATIVE); Nitrite Urine UA NEGATIVE (Negative); Occult Blood Urine UA TRACE-LYSED (Negative); Protein Urine UA 1+ (Negative); Urobilinogen Urine UA 0.2 E.U./dL (0.2)
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
[2019-08-27 15:21] LABS: UR Morphine/Opiate cutoff 300 Positive (Negative); Ur Creatinine Normal (Normal); Ur Specific Gravity Normal (Normal); Urine Cocaine Negative (Negative); Urine Tetrahydrocannabinol Negative (Negative); Urine pH Normal (Normal)
[2019-08-27 15:22] LABS: Urine Amphetamines Negative (Negative); Urine Barbiturates Negative (Negative); Urine Benzodiazepines Positive (Negative); Urine MDMA Negative (Negative); Urine Methadone Negative (Negative); Urine Methamphetamines Negative (Negative); Urine Oxycodone Negative (Negative); Urine Phencyclidine Negative (Negative); Urine Tricyclic Antidepressant Negative (Negative)
[2019-08-27] MEDS: LORazepam 0.5 MG TABLET 2 MG PO (15:27)
[2019-08-27 15:28] LABS: Bacteria Urine Few (2-10); Culture Indicated Urine Cult Not Indicated; Granular Casts Urine 0-1/LPF; Mucus Urine 4+ (Negative); RBC Urine 0-1/HPF (0-5/HPF); WBC Urine 0-1/HPF (0-5/HPF)
--- NOTE | 2019-08-27 15:34 | PC.NURSE ---
Angelo working on arranging a ride home
[2019-08-27 15:47] VITALS: BP 138/98; PULSE 99; RESP 18; O2SAT 98
== END 2019-08-27 15:52 | disposition home or self-care (01) ==
PROVIDERS: Emergency Provider Emergency Medicine; Family Provider Family Medicine; PCP Family Medicine
DX: F10.920 Alcohol use, unspecified with intoxication, uncomplicated (principal); F41.9 Anxiety disorder, unspecified
CPT/HCPCS: 36415; 80053; 80076; 80305; 80320; 81001; 83690; 83735; 84100; 85025; 93005; 96361; 96374; 96375; 96376; 99284; C9113; J2060; J2405; J2560